=== PATIENT | male | born 1965 | race Caucasian/White ===

== ENCOUNTER 2018-01-07 20:04 | Inpatient (IN) | payer OTHER ==
[~2018-01-07 20:04] MED LIST: PHENYLEPH/NS 1000 MCG/10 ML SYR IV ONE; PHENYLEPHRINE HCL 10 MG/ML VIAL IV ONE; PROPOFOL 200 MG/20 ML AMP IV ONE; ROCURONIUM INJ 50 MG/5 ML SYRINGE IV PUSH ONE; SUCCINYLCHOLINE CHLORIDE 200 MG/10 ML VIAL IV ONE; VECURONIUM BROMIDE 20 MG VIAL IV ONE
[2018-01-07] MEDS ORDERED: IOHEXOL 350 MG/ML 10 ML VIAL (for RAD DIAG) IVCONTRAST ONE (20:05)
[2018-01-07 20:06] VITALS: O2SAT 94
[2018-01-07] MEDS ORDERED: ceFAZolin 2 GM PREMIX 50 ML ONE (20:08)
[2018-01-07] MEDS ORDERED: MORPHINE SULFATE 4 MG/ML INJ ONE (20:13)
[2018-01-07 20:27] LABS: AUTOMATED NEUTROPHIL # 3.2 TH/MM3 (1.8-7.7); BASOPHIL # 0.1 TH/MM3 (0-0.2); BASOPHIL % 0.5 % (0.0-2.0); EOSINOPHIL # 0.9 TH/MM3 (0-0.4); EOSINOPHIL % 8.7 % (0.0-4.0); HEMATOCRIT 41.8 % (39.0-51.0); HEMOGLOBIN 14.3 GM/DL (13.0-17.0); LYMPHOCYTE # 6.1 TH/MM3 (1.0-4.8); MEAN CELL VOLUME 87.3 FL (80.0-100.0); MEAN CORPUSCULAR HEMOGLOBIN 29.9 PG (27.0-34.0); MEAN CORPUSCULAR HGB CONC 34.2 % (32.0-36.0); MEAN PLATELET VOLUME 8.1 FL (7.0-11.0); MONO % 5.7 % (0.0-8.0); MONOCYTE # 0.6 TH/MM3 (0-0.9); NEUT % 29.1 % (16.0-70.0); PLATELET COUNT 305 TH/MM3 (150-450); RED BLOOD COUNT 4.79 MIL/MM3 (4.50-5.90); RED CELL DISTRIBUTION WIDTH 15.6 % (11.6-17.2); WHITE BLOOD COUNT 10.9 TH/MM3 (4.0-11.0)
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
[2018-01-07 20:38] LABS: PROTHROMBIN TIME - PATIENT 10.3 SEC (9.8-11.6)
[2018-01-07] MEDS ORDERED: fentaNYL CITRATE 1000 MCG/20 ML VIAL ONE (20:41)
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
[2018-01-07 20:55] LABS: BANDS 2 % (0-6); LYMPHOCYTES 56 % (9-44); MONOCYTES 6 % (0-8); NEUTROPHIL # MANUAL DIFF 3.4 TH/MM3 (1.8-7.7); POLYS (SEG NEUTROPHILS) 29 % (16-70)
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
[2018-01-07 22:22] LABS: HEMATOCRIT 28.1 % (39.0-51.0); HEMOGLOBIN 9.8 GM/DL (13.0-17.0); MEAN CELL VOLUME 86.9 FL (80.0-100.0); MEAN CORPUSCULAR HEMOGLOBIN 30.4 PG (27.0-34.0); MEAN CORPUSCULAR HGB CONC 34.9 % (32.0-36.0); PLATELET COUNT 146 TH/MM3 (150-450); RED BLOOD COUNT 3.23 MIL/MM3 (4.50-5.90); WHITE BLOOD COUNT 14.4 TH/MM3 (4.0-11.0)
[2018-01-07 22:47] LABS: BICARBONATE 24.9 MEQ/L (21.0-32.0); CALCIUM 8.3 MG/DL (8.5-10.1); CREATININE 0.71 MG/DL (0.60-1.30)
[2018-01-07 23:07] LABS: HEMATOCRIT 25.5 % (39.0-51.0); HEMOGLOBIN 8.8 GM/DL (13.0-17.0); MEAN CELL VOLUME 86.6 FL (80.0-100.0); MEAN CORPUSCULAR HEMOGLOBIN 29.8 PG (27.0-34.0); MEAN CORPUSCULAR HGB CONC 34.4 % (32.0-36.0); MEAN PLATELET VOLUME 7.5 FL (7.0-11.0); PLATELET COUNT 113 TH/MM3 (150-450); RED BLOOD COUNT 2.95 MIL/MM3 (4.50-5.90); RED CELL DISTRIBUTION WIDTH 15.4 % (11.6-17.2); WHITE BLOOD COUNT 10.4 TH/MM3 (4.0-11.0)
[2018-01-07 23:14] LABS: INTERNATIONAL NORMALIZED RATIO 1.3 RATIO; PROTHROMBIN TIME - PATIENT 13.4 SEC (9.8-11.6)
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
[2018-01-07] MEDS ORDERED: MIDAZOLAM HCL 2 MG/2 ML VIAL ONE (23:45)
[2018-01-08] VITALS (16 sets, daily range): BP systolic 91–136; BP diastolic 57–75; PULSE 96–135; RESP 11–20; TEMP 98–100; O2SAT 95–100
[2018-01-08] MEDS ORDERED: ENALAPRILAT 1.25 MG/ML VIAL IV PUSH PRN
[2018-01-08] MEDS ORDERED: CHLORHEXIDINE GLUCONATE 2 % 1 PACK (2 CLOTHS) TOP PRN
[2018-01-08] MEDS ORDERED: MAGNESIUM HYDROXIDE SUSP 30 ML CUP PO PRN
[2018-01-08] MEDS ORDERED: MISCELLANEOUS NURSING INFORMATION XX SCH
[2018-01-08] MEDS: PANTOPRAZOLE SODIUM 40 MG VIAL IVP SCH
[2018-01-08] MEDS ORDERED: ONDANSETRON HCL 4 MG/2 ML VIAL IV PUSH PRN
[2018-01-08] MEDS ORDERED: PHENYLEPHRINE HCL 10 MG/ML VIAL ONE (00:09)
[2018-01-08] MEDS: PHENYLEPHRINE 40 MG in D5W 500 ML IV PRN ×3 (00:30→09:19)
[2018-01-08] MEDS ORDERED: TERBUTALINE INJ 1 MG/ML AMP SQ PRN (00:30)
[2018-01-08] MEDS: NOREPINEPHRINE 4 MG/D5W 250 ML IV PRN ×2 (01:30→05:58)
[2018-01-08] MEDS: SODIUM CHLOR 0.9% 1000 ML INJ 1,000 ML IV SCH ×5 (01:51→20:52)
[2018-01-08] MEDS: fentaNYL 2,500 MCG/NS 250 ML IV PRN ×2 (01:53→19:07)
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
[2018-01-08] MEDS ORDERED: SODIUM BICARBONATE 8.4% SOLN 50 MEQ/50 ML VIAL IV ONE (02:45)
[2018-01-08] MEDS: PROPOFOL 1000 MG/100 ML IV PRN ×2 (03:13→18:47)
[2018-01-08] MEDS: CHLORHEXIDINE GLUCONATE 2 % 1 PACK (2 CLOTHS) TOP SCH ×2 (04:00→06:00)
[2018-01-08 05:30] LABS: AUTOMATED NEUTROPHIL # 13.8 TH/MM3 (1.8-7.7); EOSINOPHIL % 0.1 % (0.0-4.0); HEMOGLOBIN 9.8 GM/DL (13.0-17.0); LYMPH % 6.5 % (9.0-44.0); LYMPHOCYTE # 1.1 TH/MM3 (1.0-4.8); MEAN CELL VOLUME 86.4 FL (80.0-100.0); MEAN CORPUSCULAR HEMOGLOBIN 30.3 PG (27.0-34.0); MEAN PLATELET VOLUME 8.5 FL (7.0-11.0); MONO % 13.3 % (0.0-8.0); MONOCYTE # 2.3 TH/MM3 (0-0.9); NEUT % 80.1 % (16.0-70.0); PLATELET COUNT 133 TH/MM3 (150-450); RED BLOOD COUNT 3.24 MIL/MM3 (4.50-5.90); RED CELL DISTRIBUTION WIDTH 15.8 % (11.6-17.2); WHITE BLOOD COUNT 17.2 TH/MM3 (4.0-11.0)
[2018-01-08 06:45] LABS: ALBUMIN 1.9 GM/DL (3.4-5.0); BICARBONATE 19.8 MEQ/L (21.0-32.0); CALCIUM 6.4 MG/DL (8.5-10.1); CREATININE 1.17 MG/DL (0.60-1.30); TOTAL BILIRUBIN ADULT 0.9 MG/DL (0.2-1.0)
[2018-01-08] MEDS ORDERED: SODIUM BICARBONATE 8.4% INJ 150 MEQ in WATER STERILE FOR INJ 850 ML IV SCH (07:00)
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
[2018-01-08] MEDS ORDERED: MIDAZOLAM HCL 5 MG/ML VIAL (1 ML) ONE (07:05)
[2018-01-08] MEDS ORDERED: MIDAZOLAM HCL 5 MG/ML VIAL (1 ML) IV PUSH ONE (07:15)
[2018-01-08] MEDS ORDERED: POTASSIUM PHOSPHATE MONOBASIC 500 MG TAB PO PRN (07:30)
[2018-01-08] MEDS ORDERED: MAGNESIUM OXIDE 400 MG TAB PO PRN (07:30)
[2018-01-08] MEDS ORDERED: POTASSIUM CHLORIDE 25 MEQ EFFERVESCENT TAB PO PRN ×2 (07:30)
[2018-01-08] MEDS ORDERED: POTASSIUM CHLOR 40 MEQ PREMIX 100 ML IV PRN ×2 (07:30)
[2018-01-08] MEDS ORDERED: SODIUM PHOSPHATE INJ 30 MMOL in SODIUM CHLOR 0.9% 250 ML INJ 240 ML IV PRN (07:30)
[2018-01-08] MEDS ORDERED: MAGNESIUM SULFATE INJ 4 GM in SODIUM CHLORIDE 0.9% INJ 92 ML IV PRN (07:30)
[2018-01-08] MEDS ORDERED: POTASSIUM PHOSPHATE MONOBASIC 500 MG TAB PO/TUBE PRN (07:30)
[2018-01-08] MEDS ORDERED: MAGNESIUM SULFATE INJ 2 GM in SODIUM CHLORIDE 0.9% INJ 96 ML IV PRN (07:30)
[2018-01-08] MEDS ORDERED: POTASSIUM PHOSPHATE INJ 30 MMOL in SODIUM CHLOR 0.9% 250 ML INJ 250 ML IV PRN (07:30)
[2018-01-08] MEDS ORDERED: POTASSIUM CHLOR 20 MEQ PREMIX 100 ML IV PRN ×2 (07:30)
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
[2018-01-08] MEDS ORDERED: CALCIUM CHLORIDE INJ 1 GM in SODIUM CHLORIDE 0.9% INJ 100 ML IV ONE (07:45)
[2018-01-08] MEDS ORDERED: INSULIN REGULAR (IV INFUSION) 100 UNITS in SODIUM CHLORIDE 0.9% INJ 99 ML IV PRN (07:45)
[2018-01-08] MEDS ORDERED: DEXTROSE 50% IN WATER 50 ML VIAL(D50) IV PUSH PRN ×2 (07:45→16:45)
[2018-01-08] MEDS ORDERED: SODIUM CHLORIDE 0.9% FLUSH 10 ML FLUSH IV FLUSH PRN ×2 (07:45)
[2018-01-08] MEDS ORDERED: MISC INFORMATION OTHER ONE (07:45)
--- NOTE | 2018-01-08 07:47 | PD.PROCEDR ---
Central Line Procedure REASON FOR PROCEDURE Central venous access PROCEDURE PERFORMED Central line placement: Right subclavian CVL CONSENT Informed consent for procedure was not obtained and considered emergent due to hemodynamic instability/patient 2 vasopressors. The risks and benefits of the procedure were discussed to include but limited to bleeding, clot formation, infection, and even . ANESTHESIA Local injection of 1% Lidocaine DESCRIPTION OF THE PROCEDURE The patient was placed in supine, mild Trendelenburg position. The area was exposed and cleansed with ChloraPrep, times two. Large sterile drape was used to cover the patient, with the site exposed, under sterile conditions including cap, face mask, sterile gown, and sterile gloves. On single attempt, the introducer needle was inserted with negative pressure in syringe and venous flash was obtained. The guide wire was then advanced without any restriction and the needle was removed. The dilator was used without any complications. Using Seldinger technique the antibiotic coated triple-lumen catheter was advanced over the guide wire to a depth of 18 centimeters. The guide wire was removed. All ports were aspirated with dark venous blood return and flushed easily with sterile saline. All ports were capped. Antibiotic disc was placed around central line at puncture site. The central line was secured to the skin with two interrupted 2.0 silk sutures. The area was bandaged with sterile see- through central line bandage. RADIOLOGICAL DATA Ultrasound guidance was used to locate right subclavian vein. Doppler/color flow was used to confirm venous flow. COMPLICATIONS: No apparent complications ESTIMATED BLOOD LOSS: Less than 1 cc. Tony Cardoso MD Jan 08, 2018 07:46
[2018-01-08] MEDS ORDERED: RESP: ALBUTEROL 2.5 MG/3 ML NEB (PRN) NEB (08:00)
[2018-01-08] MEDS ORDERED: CHLORHEXIDINE 0.12% (ORAL KIT) 15 ML CUP MT SCH (08:00)
[2018-01-08] MEDS: CHLORHEXIDINE 0.12% (ORAL KIT) 15 ML CUP MT SCH ×2 (08:00→20:51)
--- NOTE | 2018-01-08 08:19 | RADRPT ---
EXAM DATE/TIME: 01/08/2018 07:41 [facility] COMPARISON: CT ABDOMEN & PELVIS W CONTRAST, January 07, 2018, 20:31. CHEST SINGLE AP, January 08, 2018, 1:58. INDICATIONS : Post central line placement. MEDICAL HISTORY : Non-responsive. SURGICAL HISTORY : Non-responsive. ENCOUNTER: Subsequent ACUITY: 1 day PAIN SCORE: Non-responsive. LOCATION: Bilateral chest FINDINGS: The examination demonstrates right subclavian central line catheter tip overlies the superior vena ca va. There is no pneumothorax. The endotracheal tube and nasogastric tube are in good position. The parenchyma is clear. The osseous structures are intact. CONCLUSION: 1. Central line in good position without evidence of pneumothorax. 2. Stable compared to previous examination. 3. The exam demonstrates the tip of the second tube which overlies the upper abdomen. Presumably, thi s is external to the patient or represents a surgically placed drain. Tom Velazquez MD on January 08, 2018 at 8:15 Board Certified Radiologist. This report was verified electronically.
[2018-01-08 08:20] LABS: BANDS 25 % (0-6); LYMPHOCYTES 1 % (9-44); MONOCYTES 9 % (0-8); NEUTROPHIL # MANUAL DIFF 15.5 TH/MM3 (1.8-7.7); POLYS (SEG NEUTROPHILS) 65 % (16-70)
[2018-01-08] MEDS: SODIUM CHLORIDE 0.9% FLUSH 10 ML FLUSH IV FLUSH SCH (08:31)
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
[2018-01-08 12:47] LABS: HEMATOCRIT 21.4 % (39.0-51.0); HEMOGLOBIN 7.5 GM/DL (13.0-17.0)
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
[2018-01-08 13:44] LABS: BICARBONATE 25.5 MEQ/L (21.0-32.0); CALCIUM 7.3 MG/DL (8.5-10.1); CREATININE 1.12 MG/DL (0.60-1.30); MAGNESIUM 1.8 MG/DL (1.5-2.5); PHOSPHORUS 3.4 MG/DL (2.5-4.9)
[2018-01-08 14:14] LABS: CALCIUM-PROTEIN CORRECTED 8.7 MG/DL (8.5-10.1); TOTAL PROTEIN 4.7 GM/DL (6.4-8.2)
--- NOTE | 2018-01-08 14:38 | HHI.PR ---
Subjective Patient symptoms today Pt seen and examined. Pt alert/awake. Making good u/o. Objective Vital Signs Vital Signs Date Time Temp Pulse Resp B/P (MAP) Pulse Ox O2 Delivery O2 Flow Rate FiO2 01/08/18 12:00 121 01/08/18 12:00 98.0 121 17 113/67 (82) 99 01/08/18 11:10 109 108/63 01/08/18 10:49 40 01/08/18 10:49 40 01/08/18 10:38 100 40 01/08/18 10:20 95 109/62 01/08/18 10:05 92 112/64 01/08/18 09:45 98 131/71 01/08/18 09:20 100 114/66 01/08/18 09:19 96 116/67 01/08/18 08:00 100.0 108 20 91/57 (68) 100 01/08/18 08:00 108 01/08/18 08:00 40 01/08/18 07:47 100 40 01/08/18 06:45 50 01/08/18 06:12 121 01/08/18 06:00 120 01/08/18 05:58 131 01/08/18 04:20 100 70 01/08/18 04:00 135 01/08/18 02:00 124 01/08/18 01:35 100 100 01/08/18 01:30 144 01/08/18 00:30 114 01/08/18 00:07 100 100 01/07/18 20:06 94 6.00 01/07/18 20:06 94 Nasal Cannula 6.00 Intake & Output 01/08/18 01/08/18 07:00 19:00 Intake Total 9749 ml 2325 ml Output Total 3380 ml Balance 6369 ml 2325 ml Intake IV Total 1749 ml 1784 ml FFP 323 ml Cryoprecipitate 218 ml Other 8000 ml Output Urine Total 1300 ml Drainage Total 580 ml Estimated Blood Loss 1500 ml Result Diagram: 01/08/18 1227 01/08/18 1227 Imaging Last 24 hours Impressions Chest X-Ray 01/08/18 0734 Signed Impressions: Service Date/Time: Monday, January 08, 2018 07:41 - CONCLUSION: 1. Central line in good position without evidence of pneumothorax. 2. Stable compared to previous examination. 3. The exam demonstrates the tip of the second tube which overlies the upper abdomen. Presumably, this is external to the patient or represents a surgically placed drain. Tom Velazquez MD Chest X-Ray 01/08/18 Signed Impressions: Service Date/Time: Monday, January 08, 2018 01:58 - CONCLUSION: Left lower lobe airspace disease. Endotracheal tube identified. Lang Morales MD Pelvis X-Ray 01/07/182026 Signed Impressions: Service Date/Time: Sunday, January 07, 2018 20:05 - CONCLUSION: 1. Pelvic fractures as above. Faraz Tyler MD Chest X-Ray 01/07/182026 Signed Impressions: Service Date/Time: Sunday, January 07, 2018 20:05 - CONCLUSION: 1. No acute findings. Faraz Tyler MD Thoracic Spine CT 01/07/182009 Signed Impressions: Service Date/Time: Sunday, January 07, 2018 20:31 - CONCLUSION: 1. No acute findings on thoracic spine CT. Faraz Tyler MD Maxillofacial CT 01/07/182009 Signed Impressions: Service Date/Time: Sunday, January 07, 2018 20:18 - CONCLUSION: 1. No acute facial bone fracture. Fracture lateral mass of C1 on the right. Globes intact. Faraz Tyler MD Lumbar Spine CT 01/07/182009 Signed Impressions: Service Date/Time: Sunday, January 07, 2018 20:31 - CONCLUSION: 1. No acute fracture. Diastasis of the right sacroiliac joint. Mildly displaced fracture through the lower right sacrum. Faraz Tyler MD Head CT 01/07/182009 Signed Impressions: Service Date/Time: Sunday, January 07, 2018 20:18 - CONCLUSION: 1. No acute intracranial abnormalities. Right-sided scalp laceration and hematoma. Faraz Tyler MD Chest CT 01/07/182009 Signed Impressions: Service Date/Time: Sunday, January 07, 2018 20:31 - CONCLUSION: Negative for acute traumatic injury within the thorax. Small hiatal hernia. Faraz Tyler MD Cervical Spine CT 01/07/182009 Signed Impressions: Service Date/Time: Sunday, January 07, 2018 20:18 - CONCLUSION: 1. Fractures of the right lateral mass of C1 and left pedicle and lateral mass of C6 as above. C6 fracture extends into the facet joint. No subluxation. Faraz Tyler MD Abdomen/Pelvis CT 01/07/182009 Signed Impressions: Service Date/Time: Sunday, January 07, 2018 20:31 - CONCLUSION: 1. Laceration of the medial aspect of the spleen with active extravasation. 2. Active extravasation of the root of the mesentery probably related to a mesenteric tear. There is also probable mural hematoma is adjacent small bowel. 3. Diastases right sacroiliac joint. Comminuted fractures left superior and inferior pubic rami with pelvic sidewall hematoma on the left measuring up to 2.7 cm in thickness. 4. The small to moderate hemoperitoneum. Faraz Tyler MD Objective Remarks Abd:soft,nt,nd Glaser: urine clear Medications and IVs Current Medications Medications (Trade) Dose Ordered Sig/Wally Route Start Time Stop Time Status Last Admin Sodium Chloride 1,000 ml @ 100 mls/hr Q10H IV 01/07/18 23:52 01/08/18 09:52 (NS Flush) 2 ml UNSCH PRN IV FLUSH 01/08/18 00:00 (Vasotec Inj) 1.25 mg Q8H PRN IV PUSH 01/08/18 00:00 (Zofran Inj) 4 mg Q6H PRN IV PUSH 01/08/18 00:00 01/08/18 05:58 (Protonix Inj) 40 mg Q24H IVP 01/08/18 00:00 01/08/18 00:00 (Milk Of Magnesia Liq) 30 ml Q6H PRN PO 01/08/18 00:00 Miscellaneous Information 1 Q361D XX 01/08/18 00:00 (Chlorhexidine 2% Cloth) 3 pack Taper DAILY@04 TOP 01/08/18 04:00 01/04/19 03:59 (Chlorhexidine 2% Cloth) 3 pack UNSCH PRN TOP 01/08/18 00:00 Propofol 100 ml @ 2.592 mls/ hr TITRATE PRN IV 01/08/18 00:30 01/08/18 03:13 Phenylephrine HCl 40 mg/Dextrose 500 ml @ 30 mls/hr TITRATE PRN IV 01/08/18 00:30 01/08/18 09:19 (Brethine Inj) 1 mg UNSCH PRN SQ 01/08/18 00:30 Fentanyl Citrate 250 ml @ 5 mls/hr TITRATE PRN IV 01/08/18 01:45 01/08/18 01:53 Norepinephrine Bitartrate 250 ml @ 7.5 mls/hr TITRATE PRN IV 01/08/18 02:45 01/08/18 01:30 Potassium Chloride 100 ml @ 50 mls/hr Q2H PRN IV 01/08/18 07:30 Potassium Chloride 100 ml @ 50 mls/hr Q2H PRN IV 01/08/18 07:30 (K-Lyte Cl Eff) 50 meq UNSCH PRN PO 01/08/18 07:30 Potassium Chloride 100 ml @ 25 mls/hr UNSCH PRN IV 01/08/18 07:30 Potassium Chloride 100 ml @ 50 mls/hr Q2H PRN IV 01/08/18 07:30 Magnesium Sulfate 4 gm/Sodium Chloride 100 ml @ 50 mls/hr UNSCH PRN IV 01/08/18 07:30 (Mag-Ox) 800 mg UNSCH PRN PO 01/08/18 07:30 Magnesium Sulfate 2 gm/Sodium Chloride 100 ml @ 50 mls/hr UNSCH PRN IV 01/08/18 07:30 (K-Phos) 2,000 mg Q4H PRN PO 01/08/18 07:30 Sodium Phosphate 30 mmol/Sodium Chloride 250 ml @ 42 mls/hr UNSCH PRN IV 01/08/18 07:30 (K-Phos) 2,000 mg UNSCH PRN PO/TUBE 01/08/18 07:30 Potassium Phosphate 30 mmol/ Sodium Chloride 260 ml @ 42 mls/hr UNSCH PRN IV 01/08/18 07:30 (K-Lyte Cl Eff) 50 meq UNSCH PRN PO 01/08/18 07:30 (NS Flush) DAILY IV FLUSH 01/08/18 09:00 01/08/18 08:31 (NS Flush) UNSCH PRN IV FLUSH 01/08/18 07:45 Insulin Human Regular 100 units/ Sodium Chloride 100 ml @ 0.5 mls/hr TITRATE PRN IV 01/08/18 07:45 01/08/18 09:09 (D50w (Vial) Inj) 50 ml UNSCH PRN IV PUSH 01/08/18 07:45 (Peridex 0.12% Liq) 15 ml BID@08,20 MT 01/08/18 08:00 01/08/18 08:00 (Tears Naturale Opth Soln) 1 drop Q8HR EACH EYE 01/08/18 14:00 (Albuterol Neb) 2.5 mg Q2HR NEB PRN NEB 01/08/18 08:00 Cefazolin Sodium 1000 mg/Sodium Chloride 100 ml @ 200 mls/hr Q8H IV 01/08/18 12:00 01/09/18 11:59 01/08/18 12:00 Assessment and Plan Assessment and Plan Stable s/p repair of bladder injury and spleenectomy with bowel resection Maintain glaser x 14 days. Will perform cystogram at that time. Blane Lorenz DO Jan 08, 2018 14:38
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
[2018-01-08] MEDS ORDERED: GLUCAGON 1 MG/ML VIAL OTHER PRN (16:45)
[2018-01-08] MEDS: MAGNESIUM SULFATE 1 GM PREMIX 100 ML IV SCH ×2 (17:30→18:47)
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
[2018-01-08 18:53] LABS: HEMATOCRIT 25.3 % (39.0-51.0); HEMOGLOBIN 9.1 GM/DL (13.0-17.0); MEAN CELL VOLUME 83.1 FL (80.0-100.0); MEAN CORPUSCULAR HEMOGLOBIN 29.9 PG (27.0-34.0); MEAN PLATELET VOLUME 8.6 FL (7.0-11.0); PLATELET COUNT 111 TH/MM3 (150-450); RED BLOOD COUNT 3.04 MIL/MM3 (4.50-5.90); RED CELL DISTRIBUTION WIDTH 16.9 % (11.6-17.2); WHITE BLOOD COUNT 14.2 TH/MM3 (4.0-11.0)
[2018-01-08] MEDS: INSULIN NovoLIN REGULAR SUPPLEMENTAL SCALE SQ SCH (19:09)
[2018-01-08 19:49] LABS: INTERNATIONAL NORMALIZED RATIO 1.1 RATIO; PROTHROMBIN TIME - PATIENT 10.7 SEC (9.8-11.6)
[2018-01-08] MEDS: ARTIFICIAL TEARS OPTH SOLN 15 ML BTL EACH EYE SCH (22:00)
[2018-01-09] VITALS (16 sets, daily range): BP systolic 119–148; BP diastolic 64–82; PULSE 88–105; RESP 14–20; TEMP 98.7–99.3; O2SAT 95–100
[2018-01-09] MEDS: PANTOPRAZOLE SODIUM 40 MG VIAL IVP SCH (01:08)
[2018-01-09] MEDS: INSULIN NovoLIN REGULAR SUPPLEMENTAL SCALE SQ SCH ×7 (04:00→23:42)
[2018-01-09 04:41] LABS: AUTOMATED NEUTROPHIL # 9.2 TH/MM3 (1.8-7.7); BASOPHIL # 0.1 TH/MM3 (0-0.2); BASOPHIL % 0.4 % (0.0-2.0); EOSINOPHIL # 0.2 TH/MM3 (0-0.4); EOSINOPHIL % 1.8 % (0.0-4.0); HEMATOCRIT 23.4 % (39.0-51.0); HEMOGLOBIN 8.2 GM/DL (13.0-17.0); LYMPH % 10.8 % (9.0-44.0); LYMPHOCYTE # 1.3 TH/MM3 (1.0-4.8); MEAN CELL VOLUME 82.7 FL (80.0-100.0); MEAN CORPUSCULAR HEMOGLOBIN 28.9 PG (27.0-34.0); MEAN PLATELET VOLUME 8.8 FL (7.0-11.0); MONO % 12.5 % (0.0-8.0); MONOCYTE # 1.5 TH/MM3 (0-0.9); NEUT % 74.5 % (16.0-70.0); PLATELET COUNT 109 TH/MM3 (150-450); RED BLOOD COUNT 2.83 MIL/MM3 (4.50-5.90); RED CELL DISTRIBUTION WIDTH 17.3 % (11.6-17.2); WHITE BLOOD COUNT 12.4 TH/MM3 (4.0-11.0)
[2018-01-09 04:45] LABS: PROTHROMBIN TIME - PATIENT 10.5 SEC (9.8-11.6)
[2018-01-09 05:07] LABS: ALKALINE PHOSPHATASE 37 U/L (45-117); ALT (GPT) 194 U/L (12-78); AST (GOT) 331 U/L (15-37); BICARBONATE 28.6 MEQ/L (21.0-32.0); BLOOD UREA NITROGEN 13 MG/DL (7-18); CALCIUM 6.5 MG/DL (8.5-10.1); CALCIUM-PROTEIN CORRECTED 7.8 MG/DL (8.5-10.1); CHLORIDE 107 MEQ/L (98-107); CREATININE 0.66 MG/DL (0.60-1.30); GLOMERULAR FILTRATION RATE 104 ML/MIN (>89); GLUCOSE,RANDOM 133 MG/DL (74-106); MAGNESIUM 2.2 MG/DL (1.5-2.5); PHOSPHORUS 1.6 MG/DL (2.5-4.9); SODIUM (NA) 141 MEQ/L (136-145); TOTAL BILIRUBIN ADULT 0.6 MG/DL (0.2-1.0); TOTAL PROTEIN 4.6 GM/DL (6.4-8.2)
[2018-01-09] MEDS: fentaNYL 2,500 MCG/NS 250 ML IV PRN ×2 (05:43→16:38)
--- NOTE | 2018-01-09 05:48 | RADRPT ---
EXAM DATE/TIME: 01/09/2018 04:38 [facility] COMPARISON: CHEST SINGLE AP, January 08, 2018, 7:41. INDICATIONS : Shortness of breath. MEDICAL HISTORY : Non-responsive SURGICAL HISTORY : Non-responsive ENCOUNTER: Subsequent ACUITY: 2 days PAIN SCORE: Non-responsive. LOCATION: Bilateral chest FINDINGS: Left lower lobe consolidation. Endotracheal tube and enteric tube again seen. Mild streaky infiltrate right upper lobe. CONCLUSION: No significant change has occurred. Lang Morales MD on January 09, 2018 at 5:46 Board Certified Radiologist. This report was verified electronically.
[2018-01-09] MEDS: ARTIFICIAL TEARS OPTH SOLN 15 ML BTL EACH EYE SCH ×3 (06:20→22:00)
[2018-01-09] MEDS: SODIUM CHLOR 0.9% 1000 ML INJ 1,000 ML IV SCH (06:20)
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
[2018-01-09] MEDS ORDERED: VANCOMYCIN HCL 1000 MG VIAL ONE (07:24)
[2018-01-09] MEDS ORDERED: GENTAMICIN SULFATE 80 MG/2 ML VIAL ONE (07:25)
[2018-01-09] MEDS ORDERED: ceFAZolin INJ 1,000 MG VIAL ONE (07:25)
[2018-01-09] MEDS: PROPOFOL 1000 MG/100 ML IV PRN (07:25)
[2018-01-09] MEDS ORDERED: BISACODYL 10 MG SUPP RECTAL PRN (08:00)
[2018-01-09] MEDS: CHLORHEXIDINE 0.12% (ORAL KIT) 15 ML CUP MT SCH ×2 (08:00→20:00)
[2018-01-09] MEDS ORDERED: ACETAMINOPHEN 1000 MG/100 ML 100 ML IV ONE (08:23)
[2018-01-09] MEDS ORDERED: POTASSIUM PHOSPHATE INJ 30 MMOL in SODIUM CHLOR 0.9% 250 ML INJ 250 ML IV ONE (08:30)
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
[2018-01-09] MEDS ORDERED: ceFAZolin INJ 1,000 MG VIAL IV ONE ×2 (08:50→12:00)
[2018-01-09] MEDS: LACTULOSE SYRUP 20 GM/30 ML CUP PO SCH (08:52)
[2018-01-09] MEDS: SODIUM CHLORIDE 0.9% FLUSH 10 ML FLUSH IV FLUSH SCH (08:52)
[2018-01-09] MEDS: DOCUSATE SODIUM 50 MG/SENNA 8.6 MG TAB PO SCH ×2 (08:53→21:00)
[2018-01-09] MEDS ORDERED: CALCIUM GLUCONATE INJ 1 GM in SODIUM CHLORIDE 0.9% INJ 100 ML IV ONE (09:00)
[2018-01-09] MEDS ORDERED: LACTATED RINGER'S 1000 ML INJ 1,000 ML IV SCH (09:53)
--- NOTE | 2018-01-09 09:57 | PD.OP ---
cc: August Gomez MD Operative Report Date of Surgery: Jan 09, 2018 Preoperative Diagnosis: Displaced right proximal tibia shaft fracture Postoperative Diagnosis: Procedure: Right tibia reduction and intramedullary nail fixation Anesthesia: Gen. Surgeon: August Gomez Data Network Architect(s): RADHA Merchant PA-C The surgical procedure was assisted by my physician ophthalmic surgical assistant. My P.A. presence was necessary throughout this case for the manipulation and positioning of the surgical extremity. My P.A. was assisting me throughout the duration of this procedure. The skill set of a physician ophthalmic surgical assistant was medically necessary to complete this procedure. During the surgical case the computed tomography technologist was working at the back table and the physician ophthalmic surgical assistant was directly assisting me. Operation and Findings: Implants: ITS [9]mm x [315]mm tibial nail Plan of activity: Nonweightbearing Patient was seen and examined preoperatively. An informed consent was obtained from patient after detailed discussion of risk and benefits. Risks of surgery include bleeding, infection, painful hardware, nonunion, malunion, leg length discrepancy, need for hardware removal, and medical complications associated with anesthesia including blood clots, stroke, heart attack, and were discussed. Operative site was marked. Patient was brought to the operating room placed on or table. Patient received IV antibiotics and was given IV sedation GETA. Operative leg was prepped with alcohol Hibiclens and draped in usual sterile fashion. Timeout procedure was performed Procedure began with reduction of fracture. 2 small incisions were made around the fracture site. A percutaneous clamp was placed. Traction was applied. Fracture was reduced. There was comminution of the fracture. The fracture reduced and excellent alignment was achieved. Fracture clamp was used to aid in reduction. Next a 3 cm incision was made proximal to the patella. Quadriceps tendon was split in line with fibers. Cannulas were placed in the patellofemoral joint to protect the articular surface at all times. A guidepin was placed into the tibia and advanced in the tibial canal. Fluoroscopy was used to confirm appropriate guidepin placement. An opening reamer was used to open the tibial canal. A ball-tipped guidewire was advanced down the tibial canal. Guidepin was passed across the fracture site into the center of the distal tibia. Fluoroscopy confirmed guidepin placement. The nail length was now measured. The fracture was now held in a reduced position and the canal was reamed. The canal was reamed up to appropriate size. A ITS nail was now selected. Next the nail was fully seated. Using perfect [place] technique 2 distal interlocking screws were placed. The nail was now back slapped to apply compression across the fracture site. Using the insertion handle as a guide 4 proximal interlocking screws were placed. Fluoroscopy confirmed excellent of fracture with well-placed hardware. Incisions and the knee joint were thoroughly irrigated with sterile saline. Fascia was closed with #1 Vicryl, subcutaneous tissues closed with 3-0 Vicryl and skin was closed with mihaela. Sterile dressings were applied. Patient was transferred to [facility] in stable condition. August Gomez MD Jan 09, 2018 09:57
[2018-01-09] MEDS ORDERED: diphenhydrAMINE HCL 25 MG CAP PO PRN (10:00)
--- NOTE | 2018-01-09 10:38 | RADRPT ---
EXAM DATE/TIME: 01/09/2018 10:27 [facility] COMPARISON: CT BRAIN W/O CONTRAST, January 07, 2018, 20:18. INDICATIONS : Right pupil larger than left pupil. RADIATION DOSE: 55.91 CTDIvol (mGy) MEDICAL HISTORY : Non-responsive. SURGICAL HISTORY : Non-responsive. ENCOUNTER: Initial ACUITY: 1 day PAIN SCALE: Non-responsive LOCATION: cranial TECHNIQUE: Multiple contiguous axial images were obtained of the head. Using automated exposure control and adj ustment of the mA and/or kV according to patient size, radiation dose was kept as low as reasonably a chievable to obtain optimal diagnostic quality images. DICOM format image data is available electro nically for review and comparison. FINDINGS: CEREBRUM: The ventricles are normal for age. No evidence of midline shift, mass lesion, hemorrhage or acute in farction. No extra-axial fluid collections are seen. POSTERIOR FOSSA: The cerebellum and brainstem are intact. The 4th ventricle is midline. The cerebellopontine angle i s unremarkable. EXTRACRANIAL: The visualized portion of the orbits is intact. SKULL: Soft tissue swelling right calvarium and skin mihaela. Minimal left maxillary sinus disease.. No ev idence of skull fracture. CONCLUSION: Negative. Posterior fossa is unremarkable. There is no skull base fracture. There is no orbital fr acture.. Mark Velazquez MD FACR on January 09, 2018 at 10:35 Board Certified Radiologist. This report was verified electronically.
[2018-01-09] MEDS ORDERED: LACTATED RINGER'S 1000 ML INJ 1,000 ML IV ONE (12:00)
[2018-01-09] MEDS ORDERED: ROCURONIUM INJ 50 MG/5 ML SYRINGE IV PUSH ONE (12:00)
[2018-01-09] MEDS ORDERED: DEXAMETHASONE SOD PHOS 4 MG/ML VIAL IV ONE (12:00)
[2018-01-09] MEDS ORDERED: PHENYLEPH/NS 1000 MCG/10 ML SYR IV ONE (12:00)
[2018-01-09] MEDS ORDERED: PROPOFOL 200 MG/20 ML AMP IV ONE (12:00)
[2018-01-09] MEDS ORDERED: ONDANSETRON HCL 4 MG/2 ML VIAL IV ONE (12:00)
[2018-01-09 12:13] LABS: HEMATOCRIT 22.6 % (39.0-51.0); HEMOGLOBIN 7.8 GM/DL (13.0-17.0)
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
--- NOTE | 2018-01-09 12:52 | HHI.PR ---
Subjective Patient symptoms today Pt seen and examined. Intubated and sedated s/p repair of femur fx. Objective Vital Signs Vital Signs Date Time Temp Pulse Resp B/P (MAP) Pulse Ox O2 Delivery O2 Flow Rate FiO2 01/09/18 10:27 100 100 01/09/18 08:16 97 40 01/09/18 06:15 98 40 01/09/18 06:00 90 01/09/18 04:05 100 40 01/09/18 04:00 40 01/09/18 04:00 92 01/09/18 02:00 101 01/09/18 00:00 90 01/09/18 00:00 40 01/08/18 23:00 95 40 01/08/18 22:00 96 01/08/18 20:00 40 01/08/18 20:00 99.3 107 11 136/75 (95) 95 01/08/18 20:00 107 01/08/18 19:53 95 40 01/08/18 19:00 95 Mechanical Ventilator 40 01/08/18 16:00 108 12 111/63 (79) 98 01/08/18 16:00 108 01/08/18 15:00 100 40 Intake & Output 01/09/18 01/09/18 07:00 19:00 Intake Total 1200 ml 500 ml Output Total 1125 ml 250 ml Balance 75 ml 250 ml Intake IV Total 1200 ml Other 500 ml Output Urine Total 1025 ml 200 ml Gastric Drainage Total 75 ml Drainage Total 25 ml Estimated Blood Loss 50 ml # Bowel Movements 0 Result Diagram: 01/09/18 1150 01/09/18 0415 Imaging Last 24 hours Impressions Chest X-Ray 01/09/18 0600 Signed Impressions: Service Date/Time: Tuesday, January 09, 2018 04:38 - CONCLUSION: No significant change has occurred. Lang Morales MD Head CT 01/09/18 0000 Signed Impressions: Service Date/Time: Tuesday, January 09, 2018 10:27 - CONCLUSION: Negative. Posterior fossa is unremarkable. There is no skull base fracture. There is no orbital fracture.. Mark Velazquez MD FACR Objective Remarks Abd:soft,nt,nd Glaser: urine clear 01/09 Abd:soft,nt,nd Glaser: urine clear Medications and IVs Current Medications Medications (Trade) Dose Ordered Sig/Wally Route Start Time Stop Time Status Last Admin (NS Flush) 2 ml UNSCH PRN IV FLUSH 01/08/18 00:00 (Vasotec Inj) 1.25 mg Q8H PRN IV PUSH 01/08/18 00:00 (Zofran Inj) 4 mg Q6H PRN IV PUSH 01/08/18 00:00 01/08/18 05:58 (Protonix Inj) 40 mg Q24H IVP 01/08/18 00:00 01/09/18 01:08 Miscellaneous Information 1 Q361D XX 01/08/18 00:00 (Chlorhexidine 2% Cloth) 3 pack Taper DAILY@04 TOP 01/08/18 04:00 01/04/19 03:59 (Chlorhexidine 2% Cloth) 3 pack UNSCH PRN TOP 01/08/18 00:00 Propofol 100 ml @ 2.592 mls/ hr TITRATE PRN IV 01/08/18 00:30 01/09/18 07:25 Phenylephrine HCl 40 mg/Dextrose 500 ml @ 30 mls/hr TITRATE PRN IV 01/08/18 00:30 01/08/18 09:19 (Brethine Inj) 1 mg UNSCH PRN SQ 01/08/18 00:30 Fentanyl Citrate 250 ml @ 5 mls/hr TITRATE PRN IV 01/08/18 01:45 01/09/18 05:43 Norepinephrine Bitartrate 250 ml @ 7.5 mls/hr TITRATE PRN IV 01/08/18 02:45 01/08/18 01:30 Potassium Chloride 100 ml @ 50 mls/hr Q2H PRN IV 01/08/18 07:30 Potassium Chloride 100 ml @ 50 mls/hr Q2H PRN IV 01/08/18 07:30 (K-Lyte Cl Eff) 50 meq UNSCH PRN PO 01/08/18 07:30 Potassium Chloride 100 ml @ 25 mls/hr UNSCH PRN IV 01/08/18 07:30 Potassium Chloride 100 ml @ 50 mls/hr Q2H PRN IV 01/08/18 07:30 Magnesium Sulfate 4 gm/Sodium Chloride 100 ml @ 50 mls/hr UNSCH PRN IV 01/08/18 07:30 (Mag-Ox) 800 mg UNSCH PRN PO 01/08/18 07:30 Magnesium Sulfate 2 gm/Sodium Chloride 100 ml @ 50 mls/hr UNSCH PRN IV 01/08/18 07:30 (K-Phos) 2,000 mg Q4H PRN PO 01/08/18 07:30 Sodium Phosphate 30 mmol/Sodium Chloride 250 ml @ 42 mls/hr UNSCH PRN IV 01/08/18 07:30 (K-Phos) 2,000 mg UNSCH PRN PO/TUBE 01/08/18 07:30 Potassium Phosphate 30 mmol/ Sodium Chloride 260 ml @ 42 mls/hr UNSCH PRN IV 01/08/18 07:30 (K-Lyte Cl Eff) 50 meq UNSCH PRN PO 01/08/18 07:30 (NS Flush) DAILY IV FLUSH 01/08/18 09:00 01/08/18 08:31 (NS Flush) UNSCH PRN IV FLUSH 01/08/18 07:45 (Peridex 0.12% Liq) 15 ml BID@08,20 MT 01/08/18 08:00 01/08/18 20:51 (Tears Naturale Opth Soln) 1 drop Q8HR EACH EYE 01/08/18 14:00 01/09/18 06:20 (Albuterol Neb) 2.5 mg Q2HR NEB PRN NEB 01/08/18 08:00 (D50w (Vial) Inj) 50 ml UNSCH PRN IV PUSH 01/08/18 16:45 (Glucagon Inj) 1 mg UNSCH PRN OTHER 01/08/18 16:45 (NovoLIN R SUPPLEMENTAL SCALE) 1 Q4HR SQ 01/08/18 20:00 (Zakia-Colace) 1 tab BID PO 01/09/18 09:00 (Lactulose Liq) 30 ml DAILY PO 01/09/18 09:00 (Dulcolax Supp) 10 mg DAILY PRN RECTAL 01/09/18 08:00 Potassium Phosphate 30 mmol/ Sodium Chloride 260 ml @ 43.333 mls/ hr ONCE ONCE IV 01/09/18 08:30 01/09/18 14:29 Lactated Ringer's 1,000 ml @ 100 mls/hr Q10H IV 01/09/18 09:53 (Lovenox Inj) 40 mg Q24H SQ 2/14/18 22:00 Cefazolin Sodium/ Dextrose 50 ml @ 100 mls/hr Q8H IV 01/09/18 17:00 01/10/18 09:29 Vancomycin HCl 1000 mg/Sodium Chloride 250 ml @ 250 mls/hr Q12H IV 01/09/18 21:00 01/10/18 09:59 (Benadryl) 25 mg Q6H PRN PO 01/09/18 10:00 (Drisdol) 50,000 units Q7D PO 01/09/18 13:00 (Vitamin D3) 1,000 units DAILY PO 01/10/18 09:00 (Vitamin C) 1,000 mg DAILY PO 01/10/18 09:00 Assessment and Plan Assessment and Plan Stable s/p repair of bladder injury and spleenectomy with bowel resection Maintain glaser x 14 days. Will perform cystogram at that time. 01/09 Stable s/p repair of bladder injury and spleenectomy with bowel resection Maintain glaser x 14 days. Blane Lorenz DO Jan 09, 2018 12:52
[2018-01-09] MEDS: ERGOCALCIFEROL (VIT D2) 50,000 UNIT CAP PO SCH (13:00)
[2018-01-09] MEDS ORDERED: SODIUM CHLOR 0.9% 1000 ML INJ 1,000 ML IV SCH (14:00)
[2018-01-09] MEDS ORDERED: FUROSEMIDE 40 MG/4 ML VIAL IV PUSH ONE (14:30)
--- NOTE | 2018-01-09 15:08 | RADRPT ---
EXAM DATE/TIME: 01/09/2018 09:39 [facility] COMPARISON: TIBIA/FIBULA RIGHT (AP/LAT), January 07, 2018, 20:05. INDICATIONS : IM nail right tib fib. MEDICAL HISTORY : Non-responsive. SURGICAL HISTORY : Non-responsive. ENCOUNTER: Subsequent ACUITY: 1 day PAIN SCORE: Non-responsive. LOCATION: Right Tib Fib. FINDINGS: Intramedullary elizabeth is bridging the fracture the proximal tibia alignment is anatomic. Locking screws are seen at both ends of the elizabeth. CONCLUSION: Anatomic alignment Mark Velazquez MD FACR on January 09, 2018 at 15:04 Board Certified Radiologist. This report was verified electronically.
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
[2018-01-09] MEDS: ceFAZolin 2 GM PREMIX 50 ML IV SCH (16:39)
[2018-01-09 16:59] LABS: HEMOGLOBIN A1C 5.7 % (4.3-6.0)
[2018-01-09] MEDS ORDERED: ACETAMINOPHEN 1000 MG/100 ML 100 ML IV PRN (17:15)
[2018-01-09] MEDS ORDERED: MORPHINE SULFATE 2 MG/ML INJ IV PUSH PRN (17:15)
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
--- NOTE | 2018-01-09 21:06 | EKG ---
Date Performed: 01/09/2018 Time Performed: 04:36:58 PTAGE: 89 years EKG: Sinus rhythm . Normal ECG NO PREVIOUS TRACING DOCTOR: Jonny Weeks Interpretating Date/Time 01/09/2018 21:04:25
[2018-01-09] MEDS: MORPHINE SULFATE 2 MG/ML INJ IV PRN (21:22)
[2018-01-09] MEDS: VANCOMYCIN INJ 1,000 MG in SODIUM CHLOR 0.9% 250 ML INJ 250 ML IV SCH (21:30)
[2018-01-09] MEDS: ENOXAPARIN SODIUM 40 MG/0.4 ML SYRINGE SQ SCH (21:31)
[2018-01-10] VITALS (10 sets, daily range): BP systolic 130–158; BP diastolic 69–87; PULSE 86–101; RESP 12–30; TEMP 97.9–99.8; O2SAT 94–100
[2018-01-10] MEDS: PANTOPRAZOLE SODIUM 40 MG VIAL IVP SCH (00:20)
[2018-01-10] MEDS: MORPHINE SULFATE 2 MG/ML INJ IV PRN ×4 (00:20→14:56)
[2018-01-10] MEDS: ceFAZolin 2 GM PREMIX 50 ML IV SCH ×2 (00:20→08:41)
[2018-01-10] MEDS: INSULIN NovoLIN REGULAR SUPPLEMENTAL SCALE SQ SCH ×5 (04:00→21:33)
[2018-01-10] MEDS: CHLORHEXIDINE GLUCONATE 2 % 1 PACK (2 CLOTHS) TOP SCH (04:00)
[2018-01-10] MEDS: ARTIFICIAL TEARS OPTH SOLN 15 ML BTL EACH EYE SCH (05:32)
[2018-01-10 06:18] LABS: AUTOMATED NEUTROPHIL # 11.8 TH/MM3 (1.8-7.7); BASOPHIL # 0.1 TH/MM3 (0-0.2); BASOPHIL % 0.4 % (0.0-2.0); EOSINOPHIL # 0.2 TH/MM3 (0-0.4); EOSINOPHIL % 1.6 % (0.0-4.0); HEMATOCRIT 22.6 % (39.0-51.0); HEMOGLOBIN 7.9 GM/DL (13.0-17.0); LYMPH % 9.5 % (9.0-44.0); LYMPHOCYTE # 1.5 TH/MM3 (1.0-4.8); MEAN CELL VOLUME 84.8 FL (80.0-100.0); MEAN CORPUSCULAR HEMOGLOBIN 29.5 PG (27.0-34.0); MEAN CORPUSCULAR HGB CONC 34.8 % (32.0-36.0); MEAN PLATELET VOLUME 8.7 FL (7.0-11.0); MONO % 11.3 % (0.0-8.0); MONOCYTE # 1.7 TH/MM3 (0-0.9); NEUT % 77.2 % (16.0-70.0); PLATELET COUNT 135 TH/MM3 (150-450); RED BLOOD COUNT 2.67 MIL/MM3 (4.50-5.90); RED CELL DISTRIBUTION WIDTH 17.2 % (11.6-17.2); WHITE BLOOD COUNT 15.3 TH/MM3 (4.0-11.0)
--- NOTE | 2018-01-10 06:27 | RADRPT ---
EXAM DATE/TIME: 01/10/2018 05:24 [facility] COMPARISON: CHEST SINGLE AP, January 09, 2018, 4:38. INDICATIONS : Follow up trauma. Short of breath. MEDICAL HISTORY : None. SURGICAL HISTORY : None. ENCOUNTER: Subsequent ACUITY: 3 days PAIN SCORE: Non-responsive. LOCATION: Bilateral chest FINDINGS: Cardiomegaly. Linear atelectasis at the left lung base. Right subclavian line is present and the tip overlies the expected location of the right atrium. An enteric tube and endotracheal tube have been r emoved. There is consolidation in the left lower lobe. Skin mihaela overlie the abdomen. CONCLUSION: Left basilar airspace disease and atelectasis. Lang Morales MD on January 10, 2018 at 6:25 Board Certified Radiologist. This report was verified electronically.
[2018-01-10 07:01] LABS: ALBUMIN 2.2 GM/DL (3.4-5.0); ALKALINE PHOSPHATASE 47 U/L (45-117); ALT (GPT) 178 U/L (12-78); AST (GOT) 246 U/L (15-37); BICARBONATE 29.8 MEQ/L (21.0-32.0); BLOOD UREA NITROGEN 11 MG/DL (7-18); CALCIUM 7.5 MG/DL (8.5-10.1); CHLORIDE 104 MEQ/L (98-107); CREATININE 0.56 MG/DL (0.60-1.30); GLOMERULAR FILTRATION RATE 126 ML/MIN (>89); GLUCOSE,RANDOM 111 MG/DL (74-106); MAGNESIUM 2.1 MG/DL (1.5-2.5); PHOSPHORUS 2.4 MG/DL (2.5-4.9); SODIUM (NA) 139 MEQ/L (136-145); TOTAL BILIRUBIN ADULT 0.5 MG/DL (0.2-1.0); TOTAL PROTEIN 5.7 GM/DL (6.4-8.2)
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
[2018-01-10] MEDS ORDERED: hydrALAZINE HCL 20 MG/ML VIAL IV PUSH PRN (07:15)
[2018-01-10] MEDS ORDERED: LABETALOL HCL 100 MG/20 ML VIAL IV PUSH PRN (07:15)
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
[2018-01-10] MEDS: CHLORHEXIDINE 0.12% (ORAL KIT) 15 ML CUP MT SCH (08:00)
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
--- NOTE | 2018-01-10 08:16 | HHI.PR ---
Subjective Patient symptoms today Pt seen and examined. Extubated and awake. Objective Vital Signs Vital Signs Date Time Temp Pulse Resp B/P (MAP) Pulse Ox O2 Delivery O2 Flow Rate FiO2 01/10/18 04:00 98.4 101 20 158/84 (108) 98 01/10/18 00:00 98.7 100 20 145/82 (103) 94 01/09/18 20:00 98.7 97 20 143/80 (101) 97 01/09/18 20:00 96 Nasal Cannula 2.00 01/09/18 19:57 99 Nasal Cannula 2.00 01/09/18 16:16 95 Nasal Cannula 3 32 01/09/18 16:00 3.00 01/09/18 16:00 98.8 105 19 148/79 (102) 100 01/09/18 14:25 40 01/09/18 13:03 100 40 01/09/18 12:00 40 01/09/18 12:00 98.8 88 14 145/82 (103) 100 01/09/18 10:27 100 100 01/09/18 08:16 97 40 Intake & Output 01/10/18 01/10/18 07:00 19:00 Output Total 1200 ml Balance -1200 ml Output Urine Total 1200 ml # Bowel Movements 0 Result Diagram: 01/10/18 0550 01/10/18 0550 Imaging Last 24 hours Impressions Chest X-Ray 01/10/18 0600 Signed Impressions: Service Date/Time: December 05:24 - CONCLUSION: Left basilar airspace disease and atelectasis. Lang Morales MD Objective Remarks Abd:soft,nt,nd Glaser: urine clear 01/09 Abd:soft,nt,nd Glaser: urine clear 01/10 Abd:soft,nt,nd Glaser with pink tinged urine Medications and IVs Current Medications Medications (Trade) Dose Ordered Sig/Wally Route Start Time Stop Time Status Last Admin (NS Flush) 2 ml UNSCH PRN IV FLUSH 01/08/18 00:00 (Vasotec Inj) 1.25 mg Q8H PRN IV PUSH 01/08/18 00:00 (Zofran Inj) 4 mg Q6H PRN IV PUSH 01/08/18 00:00 01/08/18 05:58 (Protonix Inj) 40 mg Q24H IVP 01/08/18 00:00 01/10/18 00:20 Miscellaneous Information 1 Q361D XX 01/08/18 00:00 (Chlorhexidine 2% Cloth) 3 pack Taper DAILY@04 TOP 01/08/18 04:00 01/04/19 03:59 (Chlorhexidine 2% Cloth) 3 pack UNSCH PRN TOP 01/08/18 00:00 (Brethine Inj) 1 mg UNSCH PRN SQ 01/08/18 00:30 Norepinephrine Bitartrate 250 ml @ 7.5 mls/hr TITRATE PRN IV 01/08/18 02:45 01/08/18 01:30 Potassium Chloride 100 ml @ 50 mls/hr Q2H PRN IV 01/08/18 07:30 Potassium Chloride 100 ml @ 50 mls/hr Q2H PRN IV 01/08/18 07:30 (K-Lyte Cl Eff) 50 meq UNSCH PRN PO 01/08/18 07:30 Potassium Chloride 100 ml @ 25 mls/hr UNSCH PRN IV 01/08/18 07:30 Potassium Chloride 100 ml @ 50 mls/hr Q2H PRN IV 01/08/18 07:30 Magnesium Sulfate 4 gm/Sodium Chloride 100 ml @ 50 mls/hr UNSCH PRN IV 01/08/18 07:30 (Mag-Ox) 800 mg UNSCH PRN PO 01/08/18 07:30 Magnesium Sulfate 2 gm/Sodium Chloride 100 ml @ 50 mls/hr UNSCH PRN IV 01/08/18 07:30 (K-Phos) 2,000 mg Q4H PRN PO 01/08/18 07:30 Sodium Phosphate 30 mmol/Sodium Chloride 250 ml @ 42 mls/hr UNSCH PRN IV 01/08/18 07:30 (K-Phos) 2,000 mg UNSCH PRN PO/TUBE 01/08/18 07:30 Potassium Phosphate 30 mmol/ Sodium Chloride 260 ml @ 42 mls/hr UNSCH PRN IV 01/08/18 07:30 (K-Lyte Cl Eff) 50 meq UNSCH PRN PO 01/08/18 07:30 (NS Flush) DAILY IV FLUSH 01/08/18 09:00 01/08/18 08:31 (NS Flush) UNSCH PRN IV FLUSH 01/08/18 07:45 (Peridex 0.12% Liq) 15 ml BID@08,20 MT 01/08/18 08:00 01/08/18 20:51 (Albuterol Neb) 2.5 mg Q2HR NEB PRN NEB 01/08/18 08:00 (D50w (Vial) Inj) 50 ml UNSCH PRN IV PUSH 01/08/18 16:45 (Glucagon Inj) 1 mg UNSCH PRN OTHER 01/08/18 16:45 (NovoLIN R SUPPLEMENTAL SCALE) 1 Q4HR SQ 01/08/18 20:00 01/09/18 16:00 (Zakia-Colace) 1 tab BID PO 01/09/18 09:00 (Lactulose Liq) 30 ml DAILY PO 01/09/18 09:00 (Dulcolax Supp) 10 mg DAILY PRN RECTAL 01/09/18 08:00 (Lovenox Inj) 40 mg Q24H SQ 01/09/18 22:00 01/09/18 21:31 Cefazolin Sodium/ Dextrose 50 ml @ 100 mls/hr Q8H IV 01/09/18 17:00 01/10/18 09:29 01/10/18 00:20 Vancomycin HCl 1000 mg/Sodium Chloride 250 ml @ 250 mls/hr Q12H IV 01/09/18 21:00 01/10/18 09:59 01/09/18 21:30 (Benadryl) 25 mg Q6H PRN PO 01/09/18 10:00 (Drisdol) 50,000 units Q7D PO 01/09/18 13:00 01/09/18 13:00 (Vitamin D3) 1,000 units DAILY PO 01/10/18 09:00 (Vitamin C) 1,000 mg DAILY PO 01/10/18 09:00 (Morphine Inj) 1 mg Q3HR PRN IV PUSH 01/09/18 17:15 (Morphine Inj) 2 mg Q3H PRN IV 01/09/18 17:30 01/10/18 07:34 Acetaminophen 100 ml @ 400 mls/hr Q8HR PRN IV 01/09/18 17:15 Potassium Phosphate 30 mmol/ Sodium Chloride 260 ml @ 43.333 mls/ hr ONCE ONCE IV 01/10/18 09:00 01/10/18 14:59 (Trandate Inj) 10 mg Q1HR PRN IV PUSH 01/10/18 07:15 (Apresoline Inj) 10 mg Q1HR PRN IV PUSH 01/10/18 07:15 Assessment and Plan Assessment and Plan Stable s/p repair of bladder injury and spleenectomy with bowel resection Maintain glaser x 14 days. Will perform cystogram at that time. 01/09 Stable s/p repair of bladder injury and spleenectomy with bowel resection Maintain glaser x 14 days. 01/10 Stable s/p repair of bladder injury and spleenectomy with bowel resection POD #3 Maintain glaser Cystogram in 2 weeks Blane Lorenz DO Jan 10, 2018 08:16
[2018-01-10] MEDS: VANCOMYCIN INJ 1,000 MG in SODIUM CHLOR 0.9% 250 ML INJ 250 ML IV SCH (08:43)
[2018-01-10] MEDS: ASCORBIC ACID 500 MG TAB PO SCH (08:44)
[2018-01-10] MEDS: DOCUSATE SODIUM 50 MG/SENNA 8.6 MG TAB PO SCH ×2 (08:44→21:32)
[2018-01-10] MEDS: LACTULOSE SYRUP 20 GM/30 ML CUP PO SCH (08:44)
[2018-01-10] MEDS: CHOLECALCIFEROL (VIT D3) 1000 UNIT TAB PO SCH (08:44)
[2018-01-10] MEDS: SODIUM CHLORIDE 0.9% FLUSH 10 ML FLUSH IV FLUSH SCH (08:44)
[2018-01-10] MEDS ORDERED: POTASSIUM PHOSPHATE INJ 30 MMOL in SODIUM CHLOR 0.9% 250 ML INJ 250 ML IV ONE (09:00)
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
[2018-01-10] MEDS ORDERED: oxyCODONE/ACETAMINOPHEN 5 MG/325 MG TAB PO PRN (09:30)
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
[2018-01-10] MEDS ORDERED: ACETAMINOPHEN 325 MG TAB PO PRN (18:15)
[2018-01-10] MEDS: ENOXAPARIN SODIUM 40 MG/0.4 ML SYRINGE SQ SCH (21:33)
[2018-01-11 01:10] VITALS: BP 152/86; PULSE 83; RESP 18; TEMP 98.1; O2SAT 100
[2018-01-11] MEDS: oxyCODONE/ACETAMINOPHEN 10 MG/325 MG TAB PO PRN ×4 (03:41→21:42)
--- NOTE | 2018-01-11 06:56 | RADRPT ---
EXAM DATE/TIME: 01/11/2018 06:02 [facility] COMPARISON: CHEST SINGLE AP, January 10, 2018, 5:24. INDICATIONS : Short of breath, follow up trauma MEDICAL HISTORY : pelvis,c-spine fractures SURGICAL HISTORY : None. ENCOUNTER: Subsequent ACUITY: 4 - 6 days PAIN SCORE: Non-responsive. LOCATION: Bilateral chest FINDINGS: Mild left lung base atelectasis and/or infiltrate is seen. Right subclavian line is present with tip overlapping the expected region of the SVC. No definite pneumothorax is seen for technique. The rest of the examination has not significantly changed. CONCLUSION: Mild left lung base atelectasis and/or infiltrate is seen. Michele Wiggins MD on January 11, 2018 at 6:54 Board Certified Radiologist. This report was verified electronically.
[2018-01-11 07:06] LABS: AUTOMATED NEUTROPHIL # 11.4 TH/MM3 (1.8-7.7); BASOPHIL # 0.1 TH/MM3 (0-0.2); BASOPHIL % 0.5 % (0.0-2.0); EOSINOPHIL % 6.3 % (0.0-4.0); HEMATOCRIT 21.8 % (39.0-51.0); HEMOGLOBIN 7.5 GM/DL (13.0-17.0); LYMPH % 11.9 % (9.0-44.0); LYMPHOCYTE # 1.9 TH/MM3 (1.0-4.8); MEAN CELL VOLUME 86.8 FL (80.0-100.0); MEAN CORPUSCULAR HGB CONC 34.5 % (32.0-36.0); MEAN PLATELET VOLUME 8.5 FL (7.0-11.0); MONO % 8.9 % (0.0-8.0); MONOCYTE # 1.4 TH/MM3 (0-0.9); NEUT % 72.4 % (16.0-70.0); PLATELET COUNT 193 TH/MM3 (150-450); RED BLOOD COUNT 2.51 MIL/MM3 (4.50-5.90); RED CELL DISTRIBUTION WIDTH 16.2 % (11.6-17.2); WHITE BLOOD COUNT 15.8 TH/MM3 (4.0-11.0)
[2018-01-11 07:36] LABS: ALBUMIN 2.2 GM/DL (3.4-5.0); ALT (GPT) 136 U/L (12-78); AST (GOT) 140 U/L (15-37); BICARBONATE 30.3 MEQ/L (21.0-32.0); BLOOD UREA NITROGEN 12 MG/DL (7-18); CALCIUM 7.7 MG/DL (8.5-10.1); CHLORIDE 102 MEQ/L (98-107); GLOMERULAR FILTRATION RATE 116 ML/MIN (>89); GLUCOSE,RANDOM 105 MG/DL (74-106); MAGNESIUM 2.1 MG/DL (1.5-2.5); SODIUM (NA) 137 MEQ/L (136-145)
[2018-01-11 07:39] LABS: ALKALINE PHOSPHATASE 60 U/L (45-117); PHOSPHORUS 2.7 MG/DL (2.5-4.9); TOTAL BILIRUBIN ADULT 0.6 MG/DL (0.2-1.0); TOTAL PROTEIN 5.8 GM/DL (6.4-8.2)
[2018-01-11 08:00] VITALS: BP 139/91; PULSE 84; RESP 16; TEMP 97; O2SAT 100
[2018-01-11] MEDS: INSULIN NovoLIN REGULAR SUPPLEMENTAL SCALE SQ SCH ×4 (08:00→21:43)
[2018-01-11] MEDS: LACTULOSE SYRUP 20 GM/30 ML CUP PO SCH (09:14)
[2018-01-11] MEDS: LISINOPRIL 10 MG TAB PO SCH ×2 (09:16→21:42)
[2018-01-11] MEDS: ASCORBIC ACID 500 MG TAB PO SCH (09:16)
[2018-01-11] MEDS: DOCUSATE SODIUM 50 MG/SENNA 8.6 MG TAB PO SCH ×2 (09:16→21:42)
[2018-01-11] MEDS: CHOLECALCIFEROL (VIT D3) 1000 UNIT TAB PO SCH (09:16)
--- NOTE | 2018-01-11 09:33 | PD.ORT.PN ---
Subjective Subjective Remarks Resting comfortably Objective Vitals Vital Signs Date Time Temp Pulse Resp B/P (MAP) Pulse Ox O2 Delivery O2 Flow Rate FiO2 01/11/18 08:00 97.0 84 16 139/91 (107) 100 01/11/18 01:10 98.1 83 18 152/86 (108) 100 01/10/18 21:14 98.6 86 17 155/85 (108) 95 01/10/18 18:19 97.9 87 17 149/87 (107) 100 01/10/18 16:00 91 01/10/18 16:00 98.9 91 30 138/81 (100) 94 01/10/18 14:00 96 01/10/18 12:00 99.8 95 19 130/69 (89) 96 01/10/18 12:00 95 01/10/18 10:00 89 I/O 01/10/18 01/10/18 01/10/18 01/11/18 01/11/18 01/11/18 07:00 15:00 23:00 07:00 15:00 23:00 Intake Total 300 ml 610 ml Output Total 1200 ml 2150 ml Balance -1200 ml 300 ml -1540 ml Intake Oral 360 ml IV Total 300 ml 250 ml Output Urine Total 1200 ml 2150 ml # Bowel Movements 0 0 Result Diagram: 01/11/1862101/11/18 06 Imaging Last 24 hours Impressions Chest X-Ray 01/08/18 0000 Signed Impressions: Service Date/Time: Monday, January 08, 2018 01:58 - CONCLUSION: Left lower lobe airspace disease. Endotracheal tube identified. Lang Morales MD Pelvis X-Ray 01/07/182026 Signed Impressions: Service Date/Time: Sunday, January 07, 2018 20:05 - CONCLUSION: 1. Pelvic fractures as above. Faraz Tyler MD Chest X-Ray 01/07/182026 Signed Impressions: Service Date/Time: Sunday, January 07, 2018 20:05 - CONCLUSION: 1. No acute findings. Faraz Tyelr MD Thoracic Spine CT 01/07/182009 Signed Impressions: Service Date/Time: Sunday, January 07, 2018 20:31 - CONCLUSION: 1. No acute findings on thoracic spine CT. Faraz Tyler MD Maxillofacial CT 01/07/182009 Signed Impressions: Service Date/Time: Sunday, January 07, 2018 20:18 - CONCLUSION: 1. No acute facial bone fracture. Fracture lateral mass of C1 on the right. Globes intact. Faraz Tyler MD Lumbar Spine CT 01/07/182009 Signed Impressions: Service Date/Time: Sunday, January 07, 2018 20:31 - CONCLUSION: 1. No acute fracture. Diastasis of the right sacroiliac joint. Mildly displaced fracture through the lower right sacrum. Faraz Tyler MD Head CT 01/07/182009 Signed Impressions: Service Date/Time: Sunday, January 07, 2018 20:18 - CONCLUSION: 1. No acute intracranial abnormalities. Right-sided scalp laceration and hematoma. Faraz Tyler MD Chest CT 01/07/182009 Signed Impressions: Service Date/Time: Sunday, January 07, 2018 20:31 - CONCLUSION: Negative for acute traumatic injury within the thorax. Small hiatal hernia. Faraz Tyler MD Cervical Spine CT 01/07/182009 Signed Impressions: Service Date/Time: Sunday, January 07, 2018 20:18 - CONCLUSION: 1. Fractures of the right lateral mass of C1 and left pedicle and lateral mass of C6 as above. C6 fracture extends into the facet joint. No subluxation. Faraz Tyler MD Abdomen/Pelvis CT 01/07/182009 Signed Impressions: Service Date/Time: Sunday, January 07, 2018 20:31 - CONCLUSION: 1. Laceration of the medial aspect of the spleen with active extravasation. 2. Active extravasation of the root of the mesentery probably related to a mesenteric tear. There is also probable mural hematoma is adjacent small bowel. 3. Diastases right sacroiliac joint. Comminuted fractures left superior and inferior pubic rami with pelvic sidewall hematoma on the left measuring up to 2.7 cm in thickness. 4. The small to moderate hemoperitoneum. Faraz Tyler MD Objective Remarks RLE: compartments soft. dressings clean and dry. intact. NVI. moderate swelling of lower leg Assessment & Plan Assessment and Plan 1) Right Proximal Tibia fx s/p IMN - POD 2 -NWB -daily dressing changes -elevate and ice -CM for DC planning -f/u with Dr Tse or SINAN in 2 weeks- orthopedically cleared for discharge 2) Left Pubic Rami fxs - nonop Left lower extremity weightbearing as tolerated Ralph De La Cruz Jr. Jan 11, 2018 09:33
[2018-01-11 09:46] LABS: BANDS 25 % (0-6); BASOPHILS 1 % (0-2); LYMPHOCYTES 8 % (9-44); METAMYELOCYTES 1 % (0-1); MONOCYTES 4 % (0-8); MYELOCYTES 2 % (0-0); POLYS (SEG NEUTROPHILS) 54 % (16-70)
[2018-01-11 09:48] LABS: HOWELL-JOLLY BODIES PRESENT (NONE SEEN)
[2018-01-11 12:00] VITALS: BP 141/96; PULSE 83; RESP 16; TEMP 96.9; O2SAT 100
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
[2018-01-11 16:00] VITALS: BP 155/100; PULSE 85; RESP 15; TEMP 99.1; O2SAT 100
[2018-01-11] MEDS ORDERED: PICC PRN After Blood Draw NS Lock Flush IV FLUSH ×2 (18:15→19:30)
[2018-01-11] MEDS ORDERED: SODIUM CHLORIDE 0.9% FLUSH 10 ML FLUSH IV FLUSH PRN ×3 (18:15→19:30)
[2018-01-11] MEDS ORDERED: PICC PRN Heparin 100 units/ml Lock Flush IV FLUSH ×2 (18:15→19:30)
[2018-01-11 20:00] VITALS: BP 144/88; PULSE 82; RESP 20; TEMP 97.6; O2SAT 100
[2018-01-11] MEDS: ENOXAPARIN SODIUM 30 MG/0.3 ML SYRINGE SQ SCH (21:43)
[2018-01-12] VITALS (7 sets, daily range): BP systolic 124–146; BP diastolic 76–89; PULSE 75–90; RESP 17–20; TEMP 97.1–98.3; O2SAT 96–100
[2018-01-12] MEDS: oxyCODONE/ACETAMINOPHEN 10 MG/325 MG TAB PO PRN ×4 (04:08→22:07)
[2018-01-12 04:34] LABS: AUTOMATED NEUTROPHIL # 10.3 TH/MM3 (1.8-7.7); BASOPHIL # 0.1 TH/MM3 (0-0.2); BASOPHIL % 0.7 % (0.0-2.0); EOSINOPHIL # 1.6 TH/MM3 (0-0.4); EOSINOPHIL % 9.8 % (0.0-4.0); HEMATOCRIT 24.5 % (39.0-51.0); HEMOGLOBIN 8.2 GM/DL (13.0-17.0); LYMPH % 15.8 % (9.0-44.0); LYMPHOCYTE # 2.6 TH/MM3 (1.0-4.8); MEAN CELL VOLUME 87.9 FL (80.0-100.0); MEAN CORPUSCULAR HEMOGLOBIN 29.3 PG (27.0-34.0); MEAN CORPUSCULAR HGB CONC 33.4 % (32.0-36.0); MEAN PLATELET VOLUME 8.6 FL (7.0-11.0); MONO % 11.8 % (0.0-8.0); NEUT % 61.9 % (16.0-70.0); PLATELET COUNT 265 TH/MM3 (150-450); RED BLOOD COUNT 2.79 MIL/MM3 (4.50-5.90); RED CELL DISTRIBUTION WIDTH 16.6 % (11.6-17.2); WHITE BLOOD COUNT 16.7 TH/MM3 (4.0-11.0)
[2018-01-12 04:57] LABS: ALBUMIN 2.3 GM/DL (3.4-5.0); AST (GOT) 102 U/L (15-37); BICARBONATE 29.2 MEQ/L (21.0-32.0); BLOOD UREA NITROGEN 10 MG/DL (7-18); CALCIUM 8.2 MG/DL (8.5-10.1); CHLORIDE 100 MEQ/L (98-107); CREATININE 0.55 MG/DL (0.60-1.30); GLOMERULAR FILTRATION RATE 128 ML/MIN (>89); GLUCOSE,RANDOM 102 MG/DL (74-106); SODIUM (NA) 137 MEQ/L (136-145)
[2018-01-12 04:58] LABS: ALT (GPT) 127 U/L (12-78)
[2018-01-12 05:00] LABS: ALKALINE PHOSPHATASE 69 U/L (45-117); TOTAL BILIRUBIN ADULT 0.8 MG/DL (0.2-1.0); TOTAL PROTEIN 6.2 GM/DL (6.4-8.2)
[2018-01-12 06:18] LABS: BANDS 6 % (0-6); CORRECTED NUCLEATED RBC 5 /100 WBC (0-0); LYMPHOCYTES 13 % (9-44); METAMYELOCYTES 1 % (0-1); MONOCYTES 7 % (0-8); MYELOCYTES 4 % (0-0); NEUTROPHIL # MANUAL DIFF 12.5 TH/MM3 (1.8-7.7); NUCLEATED RED BLOOD CELL 5 (0-0); POLYS (SEG NEUTROPHILS) 64 % (16-70)
--- NOTE | 2018-01-12 07:49 | PD.ORT.PN ---
Subjective Post Op Day #: 3 Subjective Remarks appears comfortable Objective Vitals Vital Signs Date Time Temp Pulse Resp B/P (MAP) Pulse Ox O2 Delivery O2 Flow Rate FiO2 01/12/18 04:00 97.8 80 20 140/76 (97) 100 01/12/18 00:00 97.8 75 20 124/86 (99) 100 01/11/18 22:00 Nasal Cannula 4.00 100 01/11/18 20:00 97.6 82 20 144/88 (106) 100 01/11/18 16:00 99.1 85 15 155/100 (118) 100 01/11/18 12:00 96.9 83 16 141/96 (111) 100 01/11/18 10:00 Nasal Cannula 3.00 01/11/18 08:00 97.0 84 16 139/91 (107) 100 I/O 01/11/18 01/11/18 01/11/18 01/12/18 01/12/18 01/12/18 07:00 15:00 23:00 07:00 15:00 23:00 Intake Total 500 ml 480 ml Output Total 1100 ml 1600 ml Balance -600 ml -1120 ml Intake Oral 500 ml 480 ml Output Urine Total 1100 ml 1600 ml # Bowel Movements 1 Result Diagram: 01/12/18 0314 01/12/18 0344 Imaging Last 24 hours Impressions Chest X-Ray 01/08/18 0000 Signed Impressions: Service Date/Time: Monday, January 08, 2018 01:58 - CONCLUSION: Left lower lobe airspace disease. Endotracheal tube identified. Lang Morales MD Pelvis X-Ray 01/07/182026 Signed Impressions: Service Date/Time: Sunday, January 07, 2018 20:05 - CONCLUSION: 1. Pelvic fractures as above. Faraz Tyler MD Chest X-Ray 01/07/182026 Signed Impressions: Service Date/Time: Sunday, January 07, 2018 20:05 - CONCLUSION: 1. No acute findings. Faraz Tyler MD Thoracic Spine CT 01/07/182009 Signed Impressions: Service Date/Time: Sunday, January 07, 2018 20:31 - CONCLUSION: 1. No acute findings on thoracic spine CT. Faraz Tyler MD Maxillofacial CT 01/07/182009 Signed Impressions: Service Date/Time: Sunday, January 07, 2018 20:18 - CONCLUSION: 1. No acute facial bone fracture. Fracture lateral mass of C1 on the right. Globes intact. Faraz Tyler MD Lumbar Spine CT 01/07/182009 Signed Impressions: Service Date/Time: Sunday, January 07, 2018 20:31 - CONCLUSION: 1. No acute fracture. Diastasis of the right sacroiliac joint. Mildly displaced fracture through the lower right sacrum. Faraz Tyler MD Head CT 01/07/182009 Signed Impressions: Service Date/Time: Sunday, January 07, 2018 20:18 - CONCLUSION: 1. No acute intracranial abnormalities. Right-sided scalp laceration and hematoma. Faraz Tyler MD Chest CT 01/07/182009 Signed Impressions: Service Date/Time: Sunday, January 07, 2018 20:31 - CONCLUSION: Negative for acute traumatic injury within the thorax. Small hiatal hernia. Faraz Tyler MD Cervical Spine CT 01/07/182009 Signed Impressions: Service Date/Time: Sunday, January 07, 2018 20:18 - CONCLUSION: 1. Fractures of the right lateral mass of C1 and left pedicle and lateral mass of C6 as above. C6 fracture extends into the facet joint. No subluxation. Faraz Tyler MD Abdomen/Pelvis CT 01/07/182009 Signed Impressions: Service Date/Time: Sunday, January 07, 2018 20:31 - CONCLUSION: 1. Laceration of the medial aspect of the spleen with active extravasation. 2. Active extravasation of the root of the mesentery probably related to a mesenteric tear. There is also probable mural hematoma is adjacent small bowel. 3. Diastases right sacroiliac joint. Comminuted fractures left superior and inferior pubic rami with pelvic sidewall hematoma on the left measuring up to 2.7 cm in thickness. 4. The small to moderate hemoperitoneum. Faraz Tyler MD Objective Remarks RLE: compartments soft. dressings clean and dry. intact. NVI. moderate swelling of lower leg, neg homans Assessment & Plan Ortho Post Op Day #: 3 Problem List: Assessment and Plan 1) Right Proximal Tibia fx s/p IMN - POD 3 -NWB -daily dressing changes -elevate and ice -CM for DC planning -f/u with Dr Tse or PA in 2 weeks- orthopedically cleared for discharge 2) Left Pubic Rami fxs - nonop Left lower extremity weightbearing as tolerated Melvin Caldwell Jan 12, 2018 07:49
[2018-01-12] MEDS: INSULIN NovoLIN REGULAR SUPPLEMENTAL SCALE SQ SCH ×4 (08:00→21:00)
[2018-01-12] MEDS: MAGNESIUM HYDROXIDE SUSP 30 ML CUP PO SCH ×2 (08:40→22:08)
[2018-01-12] MEDS: LISINOPRIL 10 MG TAB PO SCH ×2 (08:41→22:08)
[2018-01-12] MEDS: FAMOTIDINE 20 MG TAB PO SCH ×2 (08:41→22:08)
[2018-01-12] MEDS: LACTULOSE SYRUP 20 GM/30 ML CUP PO SCH (08:41)
[2018-01-12] MEDS: CHOLECALCIFEROL (VIT D3) 1000 UNIT TAB PO SCH (08:41)
[2018-01-12] MEDS: ASCORBIC ACID 500 MG TAB PO SCH (08:42)
[2018-01-12] MEDS: DOCUSATE SODIUM 50 MG/SENNA 8.6 MG TAB PO SCH ×2 (08:42→22:07)
[2018-01-12] MEDS: ENOXAPARIN SODIUM 30 MG/0.3 ML SYRINGE SQ SCH ×2 (08:56→22:07)
[2018-01-12] MEDS: SODIUM CHLORIDE 0.9% FLUSH 10 ML FLUSH IV FLUSH SCH (09:00)
[2018-01-12] MEDS: PICC Daily Heparin 100 unit/mL Lock Flush IV FLUSH SCH (09:00)
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
[2018-01-13 00:31] VITALS: BP 146/84; PULSE 88; RESP 17; TEMP 97.2; O2SAT 100
[2018-01-13 04:38] LABS: AUTOMATED NEUTROPHIL # 11.9 TH/MM3 (1.8-7.7); BASOPHIL # 0.1 TH/MM3 (0-0.2); BASOPHIL % 0.6 % (0.0-2.0); EOSINOPHIL # 1.7 TH/MM3 (0-0.4); EOSINOPHIL % 9.4 % (0.0-4.0); HEMATOCRIT 24.3 % (39.0-51.0); HEMOGLOBIN 8.1 GM/DL (13.0-17.0); LYMPH % 12.8 % (9.0-44.0); LYMPHOCYTE # 2.3 TH/MM3 (1.0-4.8); MEAN CELL VOLUME 87.7 FL (80.0-100.0); MEAN CORPUSCULAR HEMOGLOBIN 29.3 PG (27.0-34.0); MEAN CORPUSCULAR HGB CONC 33.4 % (32.0-36.0); MEAN PLATELET VOLUME 8.2 FL (7.0-11.0); MONO % 11.9 % (0.0-8.0); MONOCYTE # 2.2 TH/MM3 (0-0.9); NEUT % 65.3 % (16.0-70.0); PLATELET COUNT 420 TH/MM3 (150-450); RED BLOOD COUNT 2.78 MIL/MM3 (4.50-5.90); RED CELL DISTRIBUTION WIDTH 16.8 % (11.6-17.2); WHITE BLOOD COUNT 18.2 TH/MM3 (4.0-11.0)
[2018-01-13 04:59] LABS: ALBUMIN 2.5 GM/DL (3.4-5.0); ALT (GPT) 130 U/L (12-78); AST (GOT) 104 U/L (15-37); BICARBONATE 31.3 MEQ/L (21.0-32.0); BLOOD UREA NITROGEN 11 MG/DL (7-18); CALCIUM 8.2 MG/DL (8.5-10.1); CHLORIDE 100 MEQ/L (98-107); GLOMERULAR FILTRATION RATE 116 ML/MIN (>89); GLUCOSE,RANDOM 119 MG/DL (74-106); SODIUM (NA) 136 MEQ/L (136-145)
[2018-01-13 05:02] LABS: ALKALINE PHOSPHATASE 90 U/L (45-117); TOTAL BILIRUBIN ADULT 0.9 MG/DL (0.2-1.0); TOTAL PROTEIN 6.5 GM/DL (6.4-8.2)
[2018-01-13 05:22] LABS: BANDS 5 % (0-6); BASOPHILS 1 % (0-2); CORRECTED NUCLEATED RBC 3 /100 WBC (0-0); LYMPHOCYTES 29 % (9-44); METAMYELOCYTES 4 % (0-1); MONOCYTES 3 % (0-8); MYELOCYTES 4 % (0-0); NEUTROPHIL # MANUAL DIFF 11.1 TH/MM3 (1.8-7.7); NUCLEATED RED BLOOD CELL 3 (0-0); POLYS (SEG NEUTROPHILS) 48 % (16-70)
[2018-01-13 05:38] LABS: ACANTHOCYTES OCC (NORMAL); SPHEROCYTES 1+ (NORMAL)
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
[2018-01-13] MEDS: oxyCODONE/ACETAMINOPHEN 10 MG/325 MG TAB PO PRN ×4 (06:37→21:26)
--- NOTE | 2018-01-13 07:54 | PD.ORT.PN ---
Subjective Post Op Day #: 4 Subjective Remarks minimal pain in leg. abdominal discomfort. Objective Vitals Vital Signs Date Time Temp Pulse Resp B/P (MAP) Pulse Ox O2 Delivery O2 Flow Rate FiO2 01/13/18 00:31 97.2 88 17 146/84 (104) 100 01/12/18 20:11 Nasal Cannula 3.00 01/12/18 19:42 98.3 90 17 143/89 (107) 100 01/12/18 16:00 97.1 83 18 146/83 (104) 96 01/12/18 13:16 100 Nasal Cannula 3.00 01/12/18 12:00 97.7 86 18 134/86 (102) 100 01/12/18 08:00 98.2 78 18 134/79 (97) 100 I/O 01/12/18 01/12/18 01/12/18 01/13/18 01/13/18 01/13/18 07:00 15:00 23:00 07:00 15:00 23:00 Intake Total 480 ml 720 ml 360 ml 360 ml Output Total 1600 ml 750 ml 900 ml 350 ml Balance -1120 ml -30 ml -540 ml 10 ml Intake Oral 480 ml 720 ml 360 ml 360 ml Output Urine Total 1600 ml 750 ml 900 ml 350 ml # Bowel Movements 2 0 1 Result Diagram: 01/13/18 0327 01/13/18 0327 Imaging Last 24 hours Impressions Chest X-Ray 01/08/18 0000 Signed Impressions: Service Date/Time: Monday, January 08, 2018 01:58 - CONCLUSION: Left lower lobe airspace disease. Endotracheal tube identified. Lang Morales MD Pelvis X-Ray 01/07/182026 Signed Impressions: Service Date/Time: Sunday, January 07, 2018 20:05 - CONCLUSION: 1. Pelvic fractures as above. Faraz Tyler MD Chest X-Ray 01/07/182026 Signed Impressions: Service Date/Time: Sunday, January 07, 2018 20:05 - CONCLUSION: 1. No acute findings. Faraz Tyler MD Thoracic Spine CT 01/07/182009 Signed Impressions: Service Date/Time: Sunday, January 07, 2018 20:31 - CONCLUSION: 1. No acute findings on thoracic spine CT. Faraz Tyler MD Maxillofacial CT 01/07/182009 Signed Impressions: Service Date/Time: Sunday, January 07, 2018 20:18 - CONCLUSION: 1. No acute facial bone fracture. Fracture lateral mass of C1 on the right. Globes intact. Faraz Tyler MD Lumbar Spine CT 01/07/182009 Signed Impressions: Service Date/Time: Sunday, January 07, 2018 20:31 - CONCLUSION: 1. No acute fracture. Diastasis of the right sacroiliac joint. Mildly displaced fracture through the lower right sacrum. Faraz Tyler MD Head CT 01/07/182009 Signed Impressions: Service Date/Time: Sunday, January 07, 2018 20:18 - CONCLUSION: 1. No acute intracranial abnormalities. Right-sided scalp laceration and hematoma. Faraz Tyler MD Chest CT 01/07/182009 Signed Impressions: Service Date/Time: Sunday, January 07, 2018 20:31 - CONCLUSION: Negative for acute traumatic injury within the thorax. Small hiatal hernia. Faraz Tyler MD Cervical Spine CT 01/07/182009 Signed Impressions: Service Date/Time: Sunday, January 07, 2018 20:18 - CONCLUSION: 1. Fractures of the right lateral mass of C1 and left pedicle and lateral mass of C6 as above. C6 fracture extends into the facet joint. No subluxation. Faraz Tyler MD Abdomen/Pelvis CT 01/07/182009 Signed Impressions: Service Date/Time: Sunday, January 07, 2018 20:31 - CONCLUSION: 1. Laceration of the medial aspect of the spleen with active extravasation. 2. Active extravasation of the root of the mesentery probably related to a mesenteric tear. There is also probable mural hematoma is adjacent small bowel. 3. Diastases right sacroiliac joint. Comminuted fractures left superior and inferior pubic rami with pelvic sidewall hematoma on the left measuring up to 2.7 cm in thickness. 4. The small to moderate hemoperitoneum. Faraz Tyler MD Objective Remarks RLE: compartments soft. dressings clean and dry. intact. NVI. moderate swelling of lower leg, neg homans Assessment & Plan Ortho Post Op Day #: 4 Problem List: Assessment and Plan 1) Right Proximal Tibia fx s/p IMN - POD 4 -NWB -daily dressing changes -elevate and ice -CM for DC planning -f/u with Dr Tse or PA in 2 weeks- orthopedically cleared for discharge 2) Left Pubic Rami fxs - nonop Left lower extremity weightbearing as tolerated Melvin Caldwell Jan 13, 2018 07:54
[2018-01-13] MEDS: ENOXAPARIN SODIUM 30 MG/0.3 ML SYRINGE SQ SCH ×2 (07:55→21:27)
[2018-01-13] MEDS: FAMOTIDINE 20 MG TAB PO SCH ×2 (07:55→21:27)
[2018-01-13] MEDS: CHOLECALCIFEROL (VIT D3) 1000 UNIT TAB PO SCH (07:55)
[2018-01-13] MEDS: ASCORBIC ACID 500 MG TAB PO SCH (07:55)
[2018-01-13] MEDS: LISINOPRIL 10 MG TAB PO SCH ×2 (07:56→21:27)
[2018-01-13] MEDS: DOCUSATE SODIUM 50 MG/SENNA 8.6 MG TAB PO SCH ×2 (07:57→21:26)
[2018-01-13] MEDS: LACTULOSE SYRUP 20 GM/30 ML CUP PO SCH (07:58)
[2018-01-13] MEDS: MAGNESIUM HYDROXIDE SUSP 30 ML CUP PO SCH ×2 (07:58→21:00)
[2018-01-13 08:00] VITALS: BP 135/79; PULSE 85; RESP 18; TEMP 98.7; O2SAT 95
[2018-01-13] MEDS: INSULIN NovoLIN REGULAR SUPPLEMENTAL SCALE SQ SCH ×4 (08:00→21:00)
[2018-01-13] MEDS: SODIUM CHLORIDE 0.9% FLUSH 10 ML FLUSH IV FLUSH SCH (08:16)
[2018-01-13] MEDS: PICC Daily Heparin 100 unit/mL Lock Flush IV FLUSH SCH (09:00)
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
[2018-01-13 12:00] VITALS: BP 140/88; PULSE 89; RESP 18; TEMP 97.9; O2SAT 100
[2018-01-13] MEDS ORDERED: MAGN30S PO (12:38)
[2018-01-13] MEDS ORDERED: PERI PO (12:38)
[2018-01-13 16:00] VITALS: BP 148/80; PULSE 95; RESP 18; TEMP 98.8; O2SAT 96
[2018-01-13 16:37] VITALS: O2SAT 99
[2018-01-13 19:48] VITALS: BP 124/79; PULSE 91; RESP 17; TEMP 99.3; O2SAT 96
[2018-01-14] VITALS (7 sets, daily range): BP systolic 128–162; BP diastolic 75–90; PULSE 83–99; RESP 15–18; TEMP 96–98.7; O2SAT 95–100
[2018-01-14] MEDS: oxyCODONE/ACETAMINOPHEN 10 MG/325 MG TAB PO PRN ×5 (04:59→23:37)
--- NOTE | 2018-01-14 06:26 | PD.ORT.PN ---
Subjective Subjective Remarks Resting comfortably Objective Vitals Vital Signs Date Time Temp Pulse Resp B/P (MAP) Pulse Ox O2 Delivery O2 Flow Rate FiO2 01/14/18 00:09 98.0 83 18 149/83 (105) 95 01/13/18 19:48 99.3 91 17 124/79 (94) 96 01/13/18 16:37 99 21 01/13/18 16:00 98.8 95 18 148/80 (102) 96 01/13/18 12:00 97.9 89 18 140/88 (105) 100 01/13/18 08:00 98.7 85 18 135/79 (97) 95 01/13/18 07:35 Nasal Cannula 3.00 100 I/O 01/13/18 01/13/18 01/13/18 01/14/18 01/14/18 01/14/18 07:00 15:00 23:00 07:00 15:00 23:00 Intake Total 360 ml 720 ml 480 ml Output Total 350 ml 550 ml 750 ml Balance 10 ml 170 ml -270 ml Intake Oral 360 ml 720 ml 480 ml Output Urine Total 350 ml 550 ml 750 ml # Bowel Movements 1 1 0 Result Diagram: 01/13/18 0327 01/13/18 0327 Imaging Last 24 hours Impressions Chest X-Ray 01/08/18 0000 Signed Impressions: Service Date/Time: Monday, January 08, 2018 01:58 - CONCLUSION: Left lower lobe airspace disease. Endotracheal tube identified. Lang Morales MD Pelvis X-Ray 01/07/182026 Signed Impressions: Service Date/Time: Sunday, January 07, 2018 20:05 - CONCLUSION: 1. Pelvic fractures as above. Faraz Tyler MD Chest X-Ray 01/07/182026 Signed Impressions: Service Date/Time: Sunday, January 07, 2018 20:05 - CONCLUSION: 1. No acute findings. Faraz Tyler MD Thoracic Spine CT 01/07/182009 Signed Impressions: Service Date/Time: Sunday, January 07, 2018 20:31 - CONCLUSION: 1. No acute findings on thoracic spine CT. Faraz Tyler MD Maxillofacial CT 01/07/182009 Signed Impressions: Service Date/Time: Sunday, January 07, 2018 20:18 - CONCLUSION: 1. No acute facial bone fracture. Fracture lateral mass of C1 on the right. Globes intact. Faraz Tyler MD Lumbar Spine CT 01/07/182009 Signed Impressions: Service Date/Time: Sunday, January 07, 2018 20:31 - CONCLUSION: 1. No acute fracture. Diastasis of the right sacroiliac joint. Mildly displaced fracture through the lower right sacrum. Faraz Tyler MD Head CT 01/07/182009 Signed Impressions: Service Date/Time: Sunday, January 07, 2018 20:18 - CONCLUSION: 1. No acute intracranial abnormalities. Right-sided scalp laceration and hematoma. Faraz Tyler MD Chest CT 01/07/182009 Signed Impressions: Service Date/Time: Sunday, January 07, 2018 20:31 - CONCLUSION: Negative for acute traumatic injury within the thorax. Small hiatal hernia. Faraz Tyler MD Cervical Spine CT 01/07/182009 Signed Impressions: Service Date/Time: Sunday, January 07, 2018 20:18 - CONCLUSION: 1. Fractures of the right lateral mass of C1 and left pedicle and lateral mass of C6 as above. C6 fracture extends into the facet joint. No subluxation. Faraz Tyler MD Abdomen/Pelvis CT 01/07/182009 Signed Impressions: Service Date/Time: Sunday, January 07, 2018 20:31 - CONCLUSION: 1. Laceration of the medial aspect of the spleen with active extravasation. 2. Active extravasation of the root of the mesentery probably related to a mesenteric tear. There is also probable mural hematoma is adjacent small bowel. 3. Diastases right sacroiliac joint. Comminuted fractures left superior and inferior pubic rami with pelvic sidewall hematoma on the left measuring up to 2.7 cm in thickness. 4. The small to moderate hemoperitoneum. Faraz Tyler MD Objective Remarks RLE: compartments soft. dressings clean and dry. intact. NVI. moderate swelling of lower leg, neg homans Assessment & Plan Assessment and Plan 1) Right Proximal Tibia fx s/p IMN - POD 5 -NWB -daily dressing changes -elevate and ice -CM for DC planning -f/u with Dr Tse or [facility] in 2 weeks- orthopedically cleared for discharge 2) Left Pubic Rami fxs - nonop Left lower extremity weightbearing as tolerated Ralph De La Cruz Jr. Jan 14, 2018 06:26
[2018-01-14] MEDS: PICC Daily Heparin 100 unit/mL Lock Flush IV FLUSH SCH (07:44)
[2018-01-14] MEDS: INSULIN NovoLIN REGULAR SUPPLEMENTAL SCALE SQ SCH ×4 (07:45→21:27)
[2018-01-14] MEDS: LACTULOSE SYRUP 20 GM/30 ML CUP PO SCH (07:46)
[2018-01-14] MEDS: MAGNESIUM HYDROXIDE SUSP 30 ML CUP PO SCH ×2 (07:46→21:17)
[2018-01-14] MEDS: CHOLECALCIFEROL (VIT D3) 1000 UNIT TAB PO SCH (07:47)
[2018-01-14] MEDS: FAMOTIDINE 20 MG TAB PO SCH ×2 (07:47→21:20)
[2018-01-14] MEDS: ASCORBIC ACID 500 MG TAB PO SCH (07:47)
[2018-01-14] MEDS: LISINOPRIL 10 MG TAB PO SCH ×2 (07:47→21:20)
[2018-01-14] MEDS: ENOXAPARIN SODIUM 30 MG/0.3 ML SYRINGE SQ SCH ×2 (07:47→21:20)
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
[2018-01-14] MEDS: DOCUSATE SODIUM 50 MG/SENNA 8.6 MG TAB PO SCH ×2 (09:00→21:18)
[2018-01-14] MEDS: SODIUM CHLORIDE 0.9% FLUSH 10 ML FLUSH IV FLUSH SCH (09:00)
[2018-01-14] MEDS ORDERED: DIATRIZOATE MEGLUM/DIATRIZOATE SOD 9 ML CUP PO ONE (11:00)
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
[2018-01-14] MEDS ORDERED: IOHEXOL 350 MG/ML 10 ML VIAL (for RAD DIAG) IVCONTRAST ONE (19:09)
--- NOTE | 2018-01-14 22:22 | RADRPT ---
EXAM DATE/TIME: 01/14/2018 18:53 [facility] COMPARISON: CT ABDOMEN & PELVIS W CONTRAST, January 07, 2018, 20:31. INDICATIONS : Abdominal pain. IV CONTRAST: 69 cc Omnipaque 350 (iohexol) IV ORAL CONTRAST: Prescribed oral contrast ingested. RADIATION DOSE: 8.10 CTDIvol (mGy) MEDICAL HISTORY : None SURGICAL HISTORY : None. ENCOUNTER: Initial ACUITY: 1 day PAIN SCALE: 5/10 LOCATION: Bilateral abdomen TECHNIQUE: Volumetric scanning of the abdomen and pelvis was performed. Using automated exposure control and ad justment of the mA and/or kV according to patient size, radiation dose was kept as low as reasonably achievable to obtain optimal diagnostic quality images. DICOM format image data is available electro nically for review and comparison. FINDINGS: LOWER LUNGS: Posterior lung base atelectasis or infiltrate. LIVER: Homogeneous density without lesion. There is no dilation of the biliary tree. No calcified gallston es. SPLEEN: Surgically absent. Small postoperative collection in the left upper quadrant. PANCREAS: Within normal limits. KIDNEYS: Normal in size and shape. There is no mass, stone or hydronephrosis. ADRENAL GLANDS: Within normal limits. VASCULAR: Aorta and branch vessels appear intact. Retroaortic left renal vein. BOWEL/MESENTERY: The stomach, small bowel, and colon demonstrate no acute abnormality. There is no free intraperitone al air or fluid. ABDOMINAL WALL: Midline skin mihaela RETROPERITONEUM: There is no lymphadenopathy. BLADDER: Shirley balloon present. REPRODUCTIVE: Within normal limits. INGUINAL: There is no lymphadenopathy or hernia. MUSCULOSKELETAL: Left pelvic fractures again noted. CONCLUSION: Small postoperative collection in the left upper quadrant post splenectomy. Benson Traore MD on January 14, 2018 at 22:17 Board Certified Radiologist. This report was verified electronically.
[2018-01-15] VITALS (9 sets, daily range): BP systolic 115–136; BP diastolic 71–88; PULSE 84–99; RESP 16–17; TEMP 97.4–100.4; O2SAT 93–98
[2018-01-15] MEDS: oxyCODONE/ACETAMINOPHEN 10 MG/325 MG TAB PO PRN ×4 (04:06→18:16)
[2018-01-15 04:12] LABS: AUTOMATED NEUTROPHIL # 11.7 TH/MM3 (1.8-7.7); BASOPHIL # 0.1 TH/MM3 (0-0.2); BASOPHIL % 0.6 % (0.0-2.0); EOSINOPHIL % 5.4 % (0.0-4.0); HEMATOCRIT 27.2 % (39.0-51.0); HEMOGLOBIN 8.9 GM/DL (13.0-17.0); LYMPH % 13.4 % (9.0-44.0); LYMPHOCYTE # 2.4 TH/MM3 (1.0-4.8); MEAN CELL VOLUME 88.6 FL (80.0-100.0); MEAN CORPUSCULAR HEMOGLOBIN 29.1 PG (27.0-34.0); MEAN CORPUSCULAR HGB CONC 32.8 % (32.0-36.0); MEAN PLATELET VOLUME 7.5 FL (7.0-11.0); MONO % 15.8 % (0.0-8.0); MONOCYTE # 2.9 TH/MM3 (0-0.9); NEUT % 64.8 % (16.0-70.0); PLATELET COUNT 693 TH/MM3 (150-450); RED BLOOD COUNT 3.07 MIL/MM3 (4.50-5.90); RED CELL DISTRIBUTION WIDTH 17.7 % (11.6-17.2); WHITE BLOOD COUNT 18.1 TH/MM3 (4.0-11.0)
[2018-01-15 04:35] LABS: ALBUMIN 2.7 GM/DL (3.4-5.0); CALCIUM 7.2 MG/DL (8.5-10.1); CREATININE 0.66 MG/DL (0.60-1.30); TOTAL BILIRUBIN ADULT 1.1 MG/DL (0.2-1.0)
[2018-01-15 04:43] LABS: CALCIUM-PROTEIN CORRECTED 7.3 MG/DL (8.5-10.1)
--- NOTE | 2018-01-15 06:31 | PD.ORT.PN ---
Subjective Subjective Remarks Resting comfortably Objective Vitals Vital Signs Date Time Temp Pulse Resp B/P (MAP) Pulse Ox O2 Delivery O2 Flow Rate FiO2 01/15/18 03:40 99.7 01/15/18 00:30 100.4 99 17 132/71 (91) 96 01/14/18 21:48 95 01/14/18 21:35 Room Air 01/14/18 21:20 98.7 99 18 162/75 (104) 95 01/14/18 16:00 98.7 85 16 152/88 (109) 100 01/14/18 12:00 97.2 86 15 142/90 (107) 97 01/14/18 11:34 99 01/14/18 08:50 Nasal Cannula 3.00 100 01/14/18 08:00 96.0 87 15 128/79 (95) 95 I/O 01/14/18 01/14/18 01/14/18 01/15/18 01/15/18 01/15/18 07:00 15:00 23:00 07:00 15:00 23:00 Intake Total 240 ml 240 ml 720 ml Output Total 650 ml 850 ml 1900 ml Balance -410 ml -610 ml -1180 ml Intake Oral 240 ml 240 ml 720 ml Output Urine Total 650 ml 850 ml 1900 ml # Bowel Movements 0 2 1 Result Diagram: 01/15/18 0340 01/15/18 0340 Imaging Last 24 hours Impressions Chest X-Ray 01/08/18 0000 Signed Impressions: Service Date/Time: Monday, January 08, 2018 01:58 - CONCLUSION: Left lower lobe airspace disease. Endotracheal tube identified. Lang Morales MD Pelvis X-Ray 01/07/182026 Signed Impressions: Service Date/Time: Sunday, January 07, 2018 20:05 - CONCLUSION: 1. Pelvic fractures as above. Faraz Tyler MD Chest X-Ray 01/07/182026 Signed Impressions: Service Date/Time: Sunday, January 07, 2018 20:05 - CONCLUSION: 1. No acute findings. Faraz Tyler MD Thoracic Spine CT 01/07/182009 Signed Impressions: Service Date/Time: Sunday, January 07, 2018 20:31 - CONCLUSION: 1. No acute findings on thoracic spine CT. Faraz Tyler MD Maxillofacial CT 01/07/182009 Signed Impressions: Service Date/Time: Sunday, January 07, 2018 20:18 - CONCLUSION: 1. No acute facial bone fracture. Fracture lateral mass of C1 on the right. Globes intact. Faraz Tyler MD Lumbar Spine CT 01/07/182009 Signed Impressions: Service Date/Time: Sunday, January 07, 2018 20:31 - CONCLUSION: 1. No acute fracture. Diastasis of the right sacroiliac joint. Mildly displaced fracture through the lower right sacrum. Faraz Tyler MD Head CT 01/07/182009 Signed Impressions: Service Date/Time: Sunday, January 07, 2018 20:18 - CONCLUSION: 1. No acute intracranial abnormalities. Right-sided scalp laceration and hematoma. Faraz Tyler MD Chest CT 01/07/182009 Signed Impressions: Service Date/Time: Sunday, January 07, 2018 20:31 - CONCLUSION: Negative for acute traumatic injury within the thorax. Small hiatal hernia. Faraz Tyler MD Cervical Spine CT 01/07/182009 Signed Impressions: Service Date/Time: Sunday, January 07, 2018 20:18 - CONCLUSION: 1. Fractures of the right lateral mass of C1 and left pedicle and lateral mass of C6 as above. C6 fracture extends into the facet joint. No subluxation. Faraz Tyler MD Abdomen/Pelvis CT 01/07/182009 Signed Impressions: Service Date/Time: Sunday, January 07, 2018 20:31 - CONCLUSION: 1. Laceration of the medial aspect of the spleen with active extravasation. 2. Active extravasation of the root of the mesentery probably related to a mesenteric tear. There is also probable mural hematoma is adjacent small bowel. 3. Diastases right sacroiliac joint. Comminuted fractures left superior and inferior pubic rami with pelvic sidewall hematoma on the left measuring up to 2.7 cm in thickness. 4. The small to moderate hemoperitoneum. Faraz Tyler MD Objective Remarks RLE: compartments soft. dressings clean and dry. intact. NVI. moderate swelling of lower leg, neg homans Left lower extremity: Bruising over thigh and pelvis. Distally intact sensation with active dorsiflexion and plantar flexion of foot Assessment & Plan Assessment and Plan 1) Right Proximal Tibia fx s/p IMN - POD 6 -NWB -daily dressing changes -elevate and ice -CM for DC planning -f/u with Dr Tse or [place] in 2 weeks- orthopedically cleared for discharge 2) Left Pubic Rami fxs - nonop Left lower extremity weightbearing as tolerated Ralph De La Cruz Jr. Jan 15, 2018 06:31
--- NOTE | 2018-01-15 06:48 | RADRPT ---
EXAM DATE/TIME: 01/15/2018 05:42 [facility] COMPARISON: CHEST SINGLE AP, January 11, 2018, 6:02. CT THORAX W CONTRAST, January 07, 2018, 20:31. CHEST SIN GLE AP, January 13, 2018, 4:30. INDICATIONS : Short of breath, follow up trauma MEDICAL HISTORY : pelvis fracture, c-spine fracture SURGICAL HISTORY : None. ENCOUNTER: Subsequent ACUITY: 1 week PAIN SCORE: 5/10 LOCATION: Bilateral chest FINDINGS: A single AP portable semierect view of the chest demonstrates the lungs to be symmetrically aerated w ithout evidence of mass or effusion. There is mild patchy opacity in the left medial lung base. The c ardiomediastinal contours are unremarkable. Osseous structures are intact. CONCLUSION: No significant change. Mild patchy opacity in the left medial lung base. Ralph De Los Santos MD on January 15, 2018 at 6:45 Board Certified Radiologist. This report was verified electronically.
[2018-01-15 07:12] LABS: BANDS 16 % (0-6); LYMPHOCYTES 14 % (9-44); METAMYELOCYTES 8 % (0-1); MONOCYTES 10 % (0-8); NEUTROPHIL # MANUAL DIFF 13.2 TH/MM3 (1.8-7.7); POLYS (SEG NEUTROPHILS) 49 % (16-70)
[2018-01-15] MEDS: INSULIN NovoLIN REGULAR SUPPLEMENTAL SCALE SQ SCH ×4 (08:00→20:44)
--- NOTE | 2018-01-15 08:48 | HHI.PR ---
Subjective Patient symptoms today Pt seen and examined. Feels well. No complaints. Objective Vital Signs Vital Signs Date Time Temp Pulse Resp B/P (MAP) Pulse Ox O2 Delivery O2 Flow Rate FiO2 01/15/18 08:00 98.1 84 17 136/88 (104) 98 01/15/18 03:40 99.7 01/15/18 00:30 100.4 99 17 132/71 (91) 96 01/14/18 21:48 95 01/14/18 21:35 Room Air 01/14/18 21:20 98.7 99 18 162/75 (104) 95 01/14/18 16:00 98.7 85 16 152/88 (109) 100 01/14/18 12:00 97.2 86 15 142/90 (107) 97 01/14/18 11:34 99 01/14/18 08:50 Nasal Cannula 3.00 100 Intake & Output 01/15/18 01/15/18 07:00 19:00 Intake Total 720 ml Output Total 1900 ml Balance -1180 ml Intake Oral 720 ml Output Urine Total 1900 ml # Bowel Movements 1 Result Diagram: 01/15/18 0340 01/15/18 0340 Imaging Last 24 hours Impressions Chest X-Ray 01/15/18 0600 Signed Impressions: Service Date/Time: Monday, January 15, 2018 05:42 - CONCLUSION: No significant change. Mild patchy opacity in the left medial lung base. Ralph De Los Santos MD Objective Remarks Abd:soft,nt,nd Glaser: urine clear 01/09 Abd:soft,nt,nd Glaser: urine clear 01/10 Abd:soft,nt,nd Glaser with pink tinged urine 01/15 Abd:soft,nt,nd Glaser with clear urine Medications and IVs Current Medications Medications (Trade) Dose Ordered Sig/Wally Route Start Time Stop Time Status Last Admin (NS Flush) 2 ml UNSCH PRN IV FLUSH 01/08/18 00:00 01/10/18 21:32 (Vasotec Inj) 1.25 mg Q8H PRN IV PUSH 01/08/18 00:00 (Zofran Inj) 4 mg Q6H PRN IV PUSH 01/08/18 00:00 01/08/18 05:58 (Albuterol Neb) 2.5 mg Q2HR NEB PRN NEB 01/08/18 08:00 (D50w (Vial) Inj) 50 ml UNSCH PRN IV PUSH 01/08/18 16:45 (Glucagon Inj) 1 mg UNSCH PRN OTHER 01/08/18 16:45 (Zakia-Colace) 1 tab BID PO 01/09/18 09:00 01/13/18 21:26 (Lactulose Liq) 30 ml DAILY PO 01/09/18 09:00 01/14/18 07:46 (Dulcolax Supp) 10 mg DAILY PRN RECTAL 01/09/18 08:00 (Benadryl) 25 mg Q6H PRN PO 01/09/18 10:00 (Drisdol) 50,000 units Q7D PO 01/09/18 13:00 01/09/18 13:00 (Vitamin D3) 1,000 units DAILY PO 01/10/18 09:00 01/14/18 07:47 (Vitamin C) 1,000 mg DAILY PO 01/10/18 09:00 01/14/18 07:47 (Morphine Inj) 1 mg Q3HR PRN IV PUSH 01/09/18 17:15 01/12/18 20:04 (Percocet 5-325 Mg) 1 tab Q4H PRN PO 01/10/18 09:30 01/10/18 18:51 (Percocet 10-325 Mg) 1 tab Q4H PRN PO 01/10/18 09:30 01/15/18 04:06 (Tylenol) 650 mg Q4H PRN PO 01/10/18 18:15 (NovoLIN R SUPPLEMENTAL SCALE) 1 ACHS SQ 01/10/18 21:00 01/14/18 21:27 (Prinivil) 10 mg Q12HR PO 01/11/18 09:00 01/14/18 21:20 (Lovenox Inj) 30 mg BID SQ 01/11/18 21:00 01/14/18 21:20 (Heparin Central Flush) DAILY IV FLUSH 01/12/18 09:00 01/14/18 07:44 (NS Flush) UNSCH PRN IV FLUSH 01/11/18 19:30 (NS Flush) UNSCH PRN IV FLUSH 01/11/18 19:30 (Heparin Central Flush) UNSCH PRN IV FLUSH 01/11/18 19:30 (NS Flush) DAILY IV FLUSH 01/12/18 09:00 01/13/18 08:16 (Milk Of Magnesia Liq) 30 ml BID PO 01/12/18 09:00 01/14/18 07:46 (Pepcid) 20 mg BID PO 01/12/18 09:00 01/14/18 21:20 Assessment and Plan Assessment and Plan Stable s/p repair of bladder injury and spleenectomy with bowel resection Maintain glaser x 14 days. Will perform cystogram at that time. 01/09 Stable s/p repair of bladder injury and spleenectomy with bowel resection Maintain glaser x 14 days. 01/10 Stable s/p repair of bladder injury and spleenectomy with bowel resection POD #3 Maintain glaser Cystogram in 2 weeks 01/15 Stable s/p repair of bladder injury and spleenectomy with bowel resection Maintain glaser catheter for now Cystogram on Sunday with glaser removal if no extravasation. Blane Lorenz DO Jan 15, 2018 08:48
[2018-01-15] MEDS: LISINOPRIL 10 MG TAB PO SCH ×2 (09:00→20:43)
[2018-01-15] MEDS: PICC Daily Heparin 100 unit/mL Lock Flush IV FLUSH SCH (09:00)
[2018-01-15] MEDS: DOCUSATE SODIUM 50 MG/SENNA 8.6 MG TAB PO SCH ×2 (09:00→20:43)
[2018-01-15] MEDS: LACTULOSE SYRUP 20 GM/30 ML CUP PO SCH (09:00)
[2018-01-15] MEDS: MAGNESIUM HYDROXIDE SUSP 30 ML CUP PO SCH ×2 (09:00→20:43)
[2018-01-15] MEDS: CHOLECALCIFEROL (VIT D3) 1000 UNIT TAB PO SCH (09:13)
[2018-01-15] MEDS: FAMOTIDINE 20 MG TAB PO SCH ×2 (09:14→20:43)
[2018-01-15] MEDS: ASCORBIC ACID 500 MG TAB PO SCH (09:14)
[2018-01-15] MEDS: SODIUM CHLORIDE 0.9% FLUSH 10 ML FLUSH IV FLUSH SCH (09:14)
[2018-01-15] MEDS: ENOXAPARIN SODIUM 30 MG/0.3 ML SYRINGE SQ SCH ×2 (09:14→20:43)
[2018-01-15] MEDS ORDERED: Vancomycin Consult Pharmacy 1 EA OTHER SCH (11:45)
[2018-01-15] MEDS ORDERED: VANCOMYCIN INJ 1,000 MG in SODIUM CHLOR 0.9% 250 ML INJ 250 ML IV SCH (11:45)
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
[2018-01-15] MEDS: PIPERACIL-TAZO 3.375 GM PREMIX 50 ML IV SCH ×2 (13:54→18:15)
[2018-01-15] MEDS: VANCOMYCIN INJ 1,500 MG in SODIUM CHLORID 0.9% 500 ML INJ 500 ML IV SCH (15:10)
--- NOTE | 2018-01-15 16:44 | RADRPT ---
EXAM DATE/TIME: 01/15/2018 14:21 [facility] COMPARISON: No previous studies available for comparison. INDICATIONS : Left leg fluid collection. MEDICAL HISTORY : Hypotension. Scalp laceration. C1-C6 fracture. SURGICAL HISTORY : Exploratory laparotomy. ENCOUNTER: Initial ACUITY: 4-6 days PAIN SCORE: 3/10 LOCATION: Left leg. AREA EVALUATED: Left leg. FINDINGS: 2 areas were scanned, correlating to areas of bruising. One area is located medially extending from the upper to distal thigh. The other is located laterally about the midthigh. No focal fluid collec tions seen and no focal areas of increased flow by color Doppler. CONCLUSION: No focal fluid collections seen. Kelechi Miramontes MD on January 15, 2018 at 16:41 Board Certified Radiologist. This report was verified electronically.
[2018-01-16] MEDS: PIPERACIL-TAZO 3.375 GM PREMIX 50 ML IV SCH ×4 (00:15→18:31)
[2018-01-16] MEDS: oxyCODONE/ACETAMINOPHEN 10 MG/325 MG TAB PO PRN ×5 (00:16→18:34)
[2018-01-16] MEDS: VANCOMYCIN INJ 1,500 MG in SODIUM CHLORID 0.9% 500 ML INJ 500 ML IV SCH ×2 (01:12→14:14)
[2018-01-16 05:09] LABS: AUTOMATED NEUTROPHIL # 9.7 TH/MM3 (1.8-7.7); BASOPHIL # 0.1 TH/MM3 (0-0.2); BASOPHIL % 0.8 % (0.0-2.0); EOSINOPHIL # 1.1 TH/MM3 (0-0.4); EOSINOPHIL % 6.8 % (0.0-4.0); HEMOGLOBIN 8.5 GM/DL (13.0-17.0); LYMPH % 14.8 % (9.0-44.0); LYMPHOCYTE # 2.3 TH/MM3 (1.0-4.8); MEAN CELL VOLUME 90.5 FL (80.0-100.0); MEAN CORPUSCULAR HEMOGLOBIN 30.8 PG (27.0-34.0); MEAN PLATELET VOLUME 7.4 FL (7.0-11.0); MONO % 15.3 % (0.0-8.0); MONOCYTE # 2.4 TH/MM3 (0-0.9); NEUT % 62.3 % (16.0-70.0); PLATELET COUNT 712 TH/MM3 (150-450); RED BLOOD COUNT 2.76 MIL/MM3 (4.50-5.90); RED CELL DISTRIBUTION WIDTH 18.5 % (11.6-17.2); WHITE BLOOD COUNT 15.5 TH/MM3 (4.0-11.0)
[2018-01-16 05:40] LABS: ALBUMIN 2.6 GM/DL (3.4-5.0); ALT (GPT) 127 U/L (12-78); AST (GOT) 75 U/L (15-37); BICARBONATE 28.5 MEQ/L (21.0-32.0); BLOOD UREA NITROGEN 12 MG/DL (7-18); CHLORIDE 101 MEQ/L (98-107); GLOMERULAR FILTRATION RATE 119 ML/MIN (>89); GLUCOSE,RANDOM 98 MG/DL (74-106); SODIUM (NA) 135 MEQ/L (136-145)
[2018-01-16 05:42] LABS: ALKALINE PHOSPHATASE 105 U/L (45-117); TOTAL BILIRUBIN ADULT 1.1 MG/DL (0.2-1.0); TOTAL PROTEIN 6.6 GM/DL (6.4-8.2)
--- NOTE | 2018-01-16 06:40 | PD.ORT.PN ---
Subjective Subjective Remarks Resting comfortably Objective Vitals Vital Signs Date Time Temp Pulse Resp B/P (MAP) Pulse Ox O2 Delivery O2 Flow Rate FiO2 01/15/18 23:30 99.9 88 16 120/72 (88) 93 01/15/18 21:14 96 01/15/18 20:45 97.4 85 16 115/79 (91) 97 01/15/18 16:00 99.4 93 17 121/71 (88) 97 01/15/18 11:58 98.3 92 17 122/80 (94) 98 01/15/18 11:18 98 Nasal Cannula 2.00 01/15/18 08:00 98.1 84 17 136/88 (104) 98 I/O 01/15/18 01/15/18 01/15/18 01/16/18 01/16/18 01/16/18 07:00 15:00 23:00 07:00 15:00 23:00 Intake Total 720 ml 480 ml 960 ml Output Total 1900 ml 800 ml 1900 ml Balance -1180 ml -320 ml -940 ml Intake Oral 720 ml 480 ml 960 ml Output Urine Total 1900 ml 800 ml 1900 ml # Bowel Movements 1 0 0 Result Diagram: 01/16/18 0405 01/16/18 0405 Imaging Last 24 hours Impressions Chest X-Ray 01/08/18 0000 Signed Impressions: Service Date/Time: Monday, January 08, 2018 01:58 - CONCLUSION: Left lower lobe airspace disease. Endotracheal tube identified. Lang Morales MD Pelvis X-Ray 01/07/182026 Signed Impressions: Service Date/Time: Sunday, January 07, 2018 20:05 - CONCLUSION: 1. Pelvic fractures as above. Faraz Tyler MD Chest X-Ray 01/07/182026 Signed Impressions: Service Date/Time: Sunday, January 07, 2018 20:05 - CONCLUSION: 1. No acute findings. Faraz Tyler MD Thoracic Spine CT 01/07/182009 Signed Impressions: Service Date/Time: Sunday, January 07, 2018 20:31 - CONCLUSION: 1. No acute findings on thoracic spine CT. Faraz Tyler MD Maxillofacial CT 01/07/182009 Signed Impressions: Service Date/Time: Sunday, January 07, 2018 20:18 - CONCLUSION: 1. No acute facial bone fracture. Fracture lateral mass of C1 on the right. Globes intact. Faraz Tyler MD Lumbar Spine CT 01/07/182009 Signed Impressions: Service Date/Time: Sunday, January 07, 2018 20:31 - CONCLUSION: 1. No acute fracture. Diastasis of the right sacroiliac joint. Mildly displaced fracture through the lower right sacrum. Faraz Tyler MD Head CT 01/07/182009 Signed Impressions: Service Date/Time: Sunday, January 07, 2018 20:18 - CONCLUSION: 1. No acute intracranial abnormalities. Right-sided scalp laceration and hematoma. Faarz Tyler MD Chest CT 01/07/182009 Signed Impressions: Service Date/Time: Sunday, January 07, 2018 20:31 - CONCLUSION: Negative for acute traumatic injury within the thorax. Small hiatal hernia. Faraz Tyler MD Cervical Spine CT 01/07/182009 Signed Impressions: Service Date/Time: Sunday, January 07, 2018 20:18 - CONCLUSION: 1. Fractures of the right lateral mass of C1 and left pedicle and lateral mass of C6 as above. C6 fracture extends into the facet joint. No subluxation. Faraz Tyler MD Abdomen/Pelvis CT 01/07/182009 Signed Impressions: Service Date/Time: Sunday, January 07, 2018 20:31 - CONCLUSION: 1. Laceration of the medial aspect of the spleen with active extravasation. 2. Active extravasation of the root of the mesentery probably related to a mesenteric tear. There is also probable mural hematoma is adjacent small bowel. 3. Diastases right sacroiliac joint. Comminuted fractures left superior and inferior pubic rami with pelvic sidewall hematoma on the left measuring up to 2.7 cm in thickness. 4. The small to moderate hemoperitoneum. Faraz Tyler MD Objective Remarks RLE: compartments soft. dressings clean and dry. intact. NVI. moderate swelling of lower leg, neg homans Left lower extremity: Bruising over thigh and pelvis. Distally intact sensation with active dorsiflexion and plantar flexion of foot Assessment & Plan Assessment and Plan 1) Right Proximal Tibia fx s/p IMN - POD 7 -NWB -daily dressing changes -elevate and ice -CM for DC planning -f/u with Dr Tse or PA in 2 weeks- orthopedically cleared for discharge 2) Left Pubic Rami fxs - nonop Left lower extremity weightbearing as tolerated Ralph De La Cruz Jr. Jan 16, 2018 06:40
[2018-01-16 08:00] VITALS: BP 116/73; PULSE 90; RESP 18; TEMP 98.5; O2SAT 98
[2018-01-16] MEDS: INSULIN NovoLIN REGULAR SUPPLEMENTAL SCALE SQ SCH ×4 (08:00→20:39)
[2018-01-16 08:04] LABS: POLYCHROMASIA 2.5 % (0.0-1.9)
[2018-01-16] MEDS: FAMOTIDINE 20 MG TAB PO SCH ×2 (08:25→20:38)
[2018-01-16] MEDS: LACTULOSE SYRUP 20 GM/30 ML CUP PO SCH (08:25)
[2018-01-16] MEDS: LISINOPRIL 10 MG TAB PO SCH ×2 (08:25→20:38)
[2018-01-16] MEDS: MAGNESIUM HYDROXIDE SUSP 30 ML CUP PO SCH ×2 (08:25→20:39)
[2018-01-16] MEDS: DOCUSATE SODIUM 50 MG/SENNA 8.6 MG TAB PO SCH ×2 (08:25→20:39)
[2018-01-16] MEDS: CHOLECALCIFEROL (VIT D3) 1000 UNIT TAB PO SCH (08:25)
[2018-01-16] MEDS: ENOXAPARIN SODIUM 30 MG/0.3 ML SYRINGE SQ SCH ×2 (08:26→20:38)
[2018-01-16] MEDS: ASCORBIC ACID 500 MG TAB PO SCH (08:26)
[2018-01-16] MEDS: PICC Daily Heparin 100 unit/mL Lock Flush IV FLUSH SCH (08:38)
[2018-01-16] MEDS: SODIUM CHLORIDE 0.9% FLUSH 10 ML FLUSH IV FLUSH SCH (08:38)
[2018-01-16 09:42] VITALS: O2SAT 98
[2018-01-16 11:57] VITALS: BP 111/73; PULSE 95; RESP 18; TEMP 98.4; O2SAT 96
[2018-01-16] MEDS: ERGOCALCIFEROL (VIT D2) 50,000 UNIT CAP PO SCH (13:03)
[2018-01-16] MEDS ORDERED: WALKER WHEELS/F1 MIS (14:01)
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
[2018-01-16 16:00] VITALS: BP 132/75; PULSE 96; RESP 18; TEMP 99.7; O2SAT 97
[2018-01-16 17:54] VITALS: O2SAT 97
[2018-01-16 20:00] VITALS: BP 134/71; PULSE 100; RESP 20; TEMP 98.6; O2SAT 98
[2018-01-17] VITALS: BP 114/75; PULSE 91; RESP 20; TEMP 100.2; O2SAT 98
[2018-01-17] MEDS: oxyCODONE/ACETAMINOPHEN 10 MG/325 MG TAB PO PRN ×5 (00:53→21:21)
[2018-01-17] MEDS: PIPERACIL-TAZO 3.375 GM PREMIX 50 ML IV SCH ×3 (00:53→14:46)
[2018-01-17] MEDS ORDERED: PHARMACY ORDERED LAB ONE (01:45)
[2018-01-17] MEDS: VANCOMYCIN INJ 1,500 MG in SODIUM CHLORID 0.9% 500 ML INJ 500 ML IV SCH ×2 (02:16→14:46)
[2018-01-17 04:28] LABS: AUTOMATED NEUTROPHIL # 11.4 TH/MM3 (1.8-7.7); BASOPHIL # 0.2 TH/MM3 (0-0.2); EOSINOPHIL # 1.1 TH/MM3 (0-0.4); EOSINOPHIL % 6.5 % (0.0-4.0); HEMATOCRIT 24.7 % (39.0-51.0); LYMPH % 10.1 % (9.0-44.0); LYMPHOCYTE # 1.7 TH/MM3 (1.0-4.8); MEAN CORPUSCULAR HEMOGLOBIN 29.5 PG (27.0-34.0); MEAN CORPUSCULAR HGB CONC 32.5 % (32.0-36.0); MEAN PLATELET VOLUME 7.2 FL (7.0-11.0); MONO % 13.6 % (0.0-8.0); MONOCYTE # 2.3 TH/MM3 (0-0.9); NEUT % 68.8 % (16.0-70.0); PLATELET COUNT 840 TH/MM3 (150-450); RED BLOOD COUNT 2.71 MIL/MM3 (4.50-5.90); RED CELL DISTRIBUTION WIDTH 19.9 % (11.6-17.2); WHITE BLOOD COUNT 16.6 TH/MM3 (4.0-11.0)
[2018-01-17 04:42] LABS: BICARBONATE 27.5 MEQ/L (21.0-32.0); CALCIUM 7.8 MG/DL (8.5-10.1); CREATININE 0.76 MG/DL (0.60-1.30)
--- NOTE | 2018-01-17 07:25 | RADRPT ---
EXAM DATE/TIME: 01/17/2018 06:35 [facility] COMPARISON: CHEST SINGLE AP, January 15, 2018, 5:42. INDICATIONS : Short of breath MEDICAL HISTORY : pelvis and c-spine fractures SURGICAL HISTORY : None. ENCOUNTER: Subsequent ACUITY: 1 week PAIN SCORE: 5/10 LOCATION: Bilateral chest FINDINGS: Portable AP view of the chest demonstrates a normal-sized cardiac silhouette. Lungs are underinflated with linear opacities at both lung bases, stable from the prior study. No pleural effusion or pneumo thorax is identified. The bones and soft tissues demonstrate no acute finding. CONCLUSION: Stable examination with underinflation and mild bibasilar opacity most likely representing atelectasi s. However, mild consolidation could have a similar appearance at the right base. Benson Prajapati MD on January 17, 2018 at 7:22 Board Certified Radiologist. This report was verified electronically.
[2018-01-17 07:39] VITALS: BP 113/68; PULSE 94; RESP 18; TEMP 99.5; O2SAT 95
[2018-01-17] MEDS: INSULIN NovoLIN REGULAR SUPPLEMENTAL SCALE SQ SCH ×4 (08:00→21:00)
[2018-01-17] MEDS: ENOXAPARIN SODIUM 30 MG/0.3 ML SYRINGE SQ SCH ×2 (08:27→21:21)
[2018-01-17] MEDS: MAGNESIUM HYDROXIDE SUSP 30 ML CUP PO SCH ×2 (08:28→21:00)
[2018-01-17] MEDS: DOCUSATE SODIUM 50 MG/SENNA 8.6 MG TAB PO SCH ×2 (08:28→21:00)
[2018-01-17] MEDS: ASCORBIC ACID 500 MG TAB PO SCH (08:28)
[2018-01-17] MEDS: LACTULOSE SYRUP 20 GM/30 ML CUP PO SCH (08:28)
[2018-01-17] MEDS: CHOLECALCIFEROL (VIT D3) 1000 UNIT TAB PO SCH (08:28)
[2018-01-17] MEDS: LISINOPRIL 10 MG TAB PO SCH ×2 (08:28→21:22)
[2018-01-17] MEDS: FAMOTIDINE 20 MG TAB PO SCH ×2 (08:28→21:21)
[2018-01-17] MEDS: PICC Daily Heparin 100 unit/mL Lock Flush IV FLUSH SCH ×2 (08:35→21:22)
[2018-01-17] MEDS: SODIUM CHLORIDE 0.9% FLUSH 10 ML FLUSH IV FLUSH SCH (08:36)
[2018-01-17 08:54] LABS: BANDS 6 % (0-6); CORRECTED NUCLEATED RBC 1 /100 WBC (0-0); LYMPHOCYTES 9 % (9-44); MONOCYTES 12 % (0-8); MYELOCYTES 5 % (0-0); NEUTROPHIL # MANUAL DIFF 12.5 TH/MM3 (1.8-7.7); NUCLEATED RED BLOOD CELL 1 (0-0); POLYS (SEG NEUTROPHILS) 64 % (16-70)
[2018-01-17 08:55] LABS: HOWELL-JOLLY BODIES PRESENT (NONE SEEN); POLYCHROMASIA 3.5 % (0.0-1.9)
[2018-01-17 10:40] VITALS: O2SAT 94
[2018-01-17 11:32] VITALS: BP 131/72; PULSE 96; RESP 18; TEMP 99.2; O2SAT 98
[2018-01-17] MEDS ORDERED: LEVA500T33 PO (12:38)
[2018-01-17] MEDS ORDERED: OXYC1TAB36 PO (12:38)
[2018-01-17] MEDS ORDERED: HAEMOPH B POLYSACCH CONJ VACCINE 0.5 ML VIAL IM ONE (12:45)
[2018-01-17] MEDS ORDERED: PNEUMOCOCCAL 13 VALENT PED INJ 0.5 ML SYR IM ONE (12:45)
[2018-01-17] MEDS ORDERED: MENINGOCOCCAL CONJUGATE VACCINE 0.5 ML VIAL IM ONE (12:45)
[2018-01-17] MEDS ORDERED: LISI10TA3 PO (15:28)
[2018-01-17 15:35] VITALS: BP 142/85; PULSE 91; RESP 18; TEMP 96.2; O2SAT 98
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
[2018-01-17 20:00] VITALS: BP 134/79; PULSE 92; RESP 15; TEMP 99.2; O2SAT 97
[2018-01-18] VITALS: BP 115/75; PULSE 86; RESP 15; TEMP 99; O2SAT 97
[2018-01-18 04:00] VITALS: BP 150/82; PULSE 91; RESP 15; TEMP 98.7; O2SAT 97
[2018-01-18] MEDS: oxyCODONE/ACETAMINOPHEN 10 MG/325 MG TAB PO PRN ×3 (04:15→14:08)
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
[2018-01-18 07:57] VITALS: BP 137/78; PULSE 82; RESP 18; TEMP 98.5; O2SAT 100
[2018-01-18] MEDS: INSULIN NovoLIN REGULAR SUPPLEMENTAL SCALE SQ SCH ×3 (08:00→17:00)
[2018-01-18] MEDS: LISINOPRIL 10 MG TAB PO SCH (08:54)
[2018-01-18] MEDS: ASCORBIC ACID 500 MG TAB PO SCH (08:54)
[2018-01-18] MEDS: CHOLECALCIFEROL (VIT D3) 1000 UNIT TAB PO SCH (08:54)
[2018-01-18] MEDS: DOCUSATE SODIUM 50 MG/SENNA 8.6 MG TAB PO SCH (08:54)
[2018-01-18] MEDS: FAMOTIDINE 20 MG TAB PO SCH (08:54)
[2018-01-18] MEDS: ENOXAPARIN SODIUM 30 MG/0.3 ML SYRINGE SQ SCH (08:58)
[2018-01-18] MEDS: MAGNESIUM HYDROXIDE SUSP 30 ML CUP PO SCH (08:59)
[2018-01-18] MEDS: LACTULOSE SYRUP 20 GM/30 ML CUP PO SCH (08:59)
[2018-01-18] MEDS ORDERED: LEVOFLOXACIN 500 MG TAB PO SCH (09:00)
[2018-01-18] MEDS: SODIUM CHLORIDE 0.9% FLUSH 10 ML FLUSH IV FLUSH SCH (09:00)
[2018-01-18 11:32] VITALS: BP 123/71; PULSE 93; RESP 18; TEMP 99.5; O2SAT 95
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
[2018-01-18 14:00] VITALS: BP 128/74; PULSE 98; RESP 18; TEMP 98; O2SAT 96
[2018-01-18] MEDS ORDERED: ASPI-183 PO ×2 (17:09→17:10)
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
== END 2018-01-18 19:26 | disposition home health service (06) | DRG 957 ==
LOC: NEPI 20:04 → EDBD 20:58 → NEDA 20:58 → N03A 01-08 → N06A 01-10 17:51
PROVIDERS: ADMIT Surgery; ATTEND Surgery
PROC: 0W3H0ZZ Control Bleeding in Retroperitoneum, Open Approach (ICD-10-PCS; 2018-01-07)
PROC: 0TQB0ZZ Repair Bladder, Open Approach (ICD-10-PCS; 2018-01-07)
PROC: 0T9B70Z Drainage of Bladder with Drainage Device, Via Natural or Artificial Opening (ICD-10-PCS; 2018-01-07)
PROC: 30233K1 Transfusion of Nonautologous Frozen Plasma into Peripheral Vein, Percutaneous Approach (ICD-10-PCS; 2018-01-07)
PROC: 30233N1 Transfusion of Nonautologous Red Blood Cells into Peripheral Vein, Percutaneous Approach (ICD-10-PCS; 2018-01-07)
PROC: 30233R1 Transfusion of Nonautologous Platelets into Peripheral Vein, Percutaneous Approach (ICD-10-PCS; 2018-01-07)
PROC: 0HQ0XZZ Repair Scalp Skin, External Approach (ICD-10-PCS; 2018-01-07)
PROC: 07TP0ZZ Resection of Spleen, Open Approach (ICD-10-PCS; principal; 2018-01-07 20:50)
PROC: 05H533Z Insertion of Infusion Device into Right Subclavian Vein, Percutaneous Approach (ICD-10-PCS; 2018-01-08)
PROC: 0QSG06Z Reposition Right Tibia with Intramedullary Internal Fixation Device, Open Approach (ICD-10-PCS; 2018-01-09)
DX: S36.039A Unspecified laceration of spleen, initial encounter (principal); S32.402A Unspecified fracture of left acetabulum, initial encounter for closed fracture; J96.00 Acute respiratory failure, unspecified whether with hypoxia or hypercapnia; S06.9X9A Unspecified intracranial injury with loss of consciousness of unspecified duration, initial encounter; K72.00 Acute and subacute hepatic failure without coma; S82.101A Unspecified fracture of upper end of right tibia, initial encounter for closed fracture; R57.8 Other shock; S12.090A Other displaced fracture of first cervical vertebra, initial encounter for closed fracture; S36.499A Other injury of unspecified part of small intestine, initial encounter; K92.2 Gastrointestinal hemorrhage, unspecified; S36.899A Unspecified injury of other intra-abdominal organs, initial encounter; D68.8 Other specified coagulation defects; S32.592A Other specified fracture of left pubis, initial encounter for closed fracture; S36.893A Laceration of other intra-abdominal organs, initial encounter; S37.23XA Laceration of bladder, initial encounter; D62 Acute posthemorrhagic anemia; S12.591A Other nondisplaced fracture of sixth cervical vertebra, initial encounter for closed fracture; E87.2 Acidosis; D68.59 Other primary thrombophilia; S82.831A Other fracture of upper and lower end of right fibula, initial encounter for closed fracture; S01.01XA Laceration without foreign body of scalp, initial encounter; Y92.410 Unspecified street and highway as the place of occurrence of the external cause; Y93.55 Activity, bike riding; V13.4XXA Pedal cycle driver injured in collision with car, pick-up truck or van in traffic accident, initial encounter; K44.9 Diaphragmatic hernia without obstruction or gangrene; E88.09 Other disorders of plasma-protein metabolism, not elsewhere classified; E11.65 Type 2 diabetes mellitus with hyperglycemia; D69.6 Thrombocytopenia, unspecified; D72.829 Elevated white blood cell count, unspecified; E83.51 Hypocalcemia; S70.12XA Contusion of left thigh, initial encounter; Z59.0 Homelessness; E83.39 Other disorders of phosphorus metabolism; N32.89 Other specified disorders of bladder; S00.91XA Abrasion of unspecified part of head, initial encounter; I10 Essential (primary) hypertension; S33.2XXA Dislocation of sacroiliac and sacrococcygeal joint, initial encounter
CPT/HCPCS: 36430; 36556; 36600; 70450; 70486; 71045; 71260; 72125; 72129; 72132; 72170; 73590; 74177; 76000; 76882; 76937; 80048; 80053; 80202; 82140; 82805; 82948; 83036; 83605; 83735; 84100; 84145; 84155; 85007; 85014; 85018; 85025; 85027; 85384; 85610; 85730; 86850; 86900; 86901; 86920; 86927; 86965; 87070; 87086; 87205; 87641; 88305; 88307; 90471; 90670; 90734; 93005; 94002; 94003; 94150; 94640; 94667; 94668; 96374; 99291; C1713; C9113; G0390; J0131; J0330; J0610; J0690; J1100; J1580; J1642; J1650; J1817; J1940; J2250; J2270; J2370; J2405; J2543; J3010; J3370; J3475; J7030; J7040; J7050; J7060; J7120; L0150; L0172; P9016; P9017; Q9963; Q9967